=== PATIENT | female | born 1990 | race Caucasian/White ===

== ENCOUNTER 2017-01-01 02:31 | Emergency (ER) | payer OTHER ==
[2017-01-01 02:48] VITALS: BP 112/79
[2017-01-01] MEDS ORDERED: Ketorolac INJ* 60 MG/2 ML VIAL IM ONE (03:02)
--- NOTE | 2017-01-01 04:08 | ED ---
veronika Duong Timothy, scribed for Cali Chiu MD on 01/01/17 at 0303 . Headache - HPI Summary HPI Summary: Elvira Jacques is a 26 yo female presenting to [facility] with 7/10 ESPANA in the back of her head, weakness, and dizziness since 1800 12/31/16. Her boyfriend is present in room. She states she took a warm shower with no relief of her Sx. Her MHx includes hypotension, migraine, asthma, GERD, depression, anxiety, and tobacco use. - History Of Current Complaint Stated Complaint: HEADACHE/WEAK/DIZZY Time Seen by Provider: 01/01/17 03:00 Hx Obtained From: Patient Hx Last Menstrual Period: 12/13/15 Onset/Duration: Sudden Onset, Started hours ago, Worse Since - now Initially Headache Was: Initial Pain Scale(0-10)= - 7 Currently Pain Is: Current Pain Scale(0-10)= - 7, Moderate Timing: Constant Location of Headache: Occipital Allevating Factors: Nothing Associated Signs And Symptoms: Dizziness, Other (Noted In Comments) - weakness - Allergies/Home Medications Allergies/Adverse Reactions: Allergies Allergy/AdvReac Type Severity Reaction Status Date / Time Amoxicillin Allergy Severe Airway Verified 01/01/17 02:45 Obstruction Ciprofloxacin [From Cipro] Allergy Severe Anaphylatic Verified 01/01/17 02:45 Shock Codeine Allergy Severe Shortness Verified 01/01/17 02:45 of Breath Topiramate [From Topamax] Allergy Severe Shortness Verified 01/01/17 02:45 of Breath Latex Allergy Intermediate Rash Verified 01/01/17 02:45 Sulfa Antibiotics Allergy Mild GI Upset Verified 01/01/17 02:45 Trazodone Allergy Mild Anxiety Verified 01/01/17 02:45 Prednisone Allergy Unknown Verified 01/01/17 02:45 Reaction Details PMH/Surg Hx/FS Hx/Imm Hx Endocrine/Hematology History: Denies: Hx Diabetes, Hx Systemic Lupus Erythematosus Cardiovascular History: Reports: Hx Hypotension - low BPs per Pt Denies: Hx Congestive Heart Failure, Hx Hypertension Respiratory History: Reports: Hx Asthma - INHALER NEEDED, Hx Seasonal Allergies GI History: Reports: Hx Gastroesophageal Reflux Disease History: Denies: Hx Dialysis, Hx Renal Disease Musculoskeletal History: Denies: Hx Rheumatoid Arthritis Neurological History: Reports: Hx Migraine Psychiatric History: Reports: Hx Anxiety, Hx Depression - Cancer History Hx Chemotherapy: No - Surgical History Surgery Procedure, Year, and Place: right knee surgery 2007 (cyst removal); cholecystectomy 2014 Infectious Disease History: No Infectious Disease History: Denies: History Other Infectious Disease, Traveled Outside the [place] in Last 30 Days - Family History Family History: NON CONTRIBUTORY - Social History Alcohol Use: Occasionally Substance Use Type: Reports: None Hx Tobacco Use: Yes Smoking Status (MU): Light Every Day Tobacco Smoker Type: Cigarettes Amount Used/How Often: 3-4 / day since January 2015 Have You Smoked in the Last Year: Yes Review of Systems Constitutional: Negative Eyes: Negative ENT: Negative Cardiovascular: Negative Respiratory: Negative Gastrointestinal: Negative Genitourinary: Negative Musculoskeletal: Negative Skin: Negative Neurological: Other - dizziness Positive: Headache, Weakness Psychological: Normal All Other Systems Reviewed And Are Negative: Yes Physical Exam Triage Information Reviewed: Yes Vital Signs On Initial Exam: Initial Vitals Temp Pulse Resp BP Pulse Ox 98 F 82 18 112/79 98 01/01/17 02:43 01/01/17 02:43 01/01/17 02:43 01/01/17 02:43 01/01/17 02:43 Vital Signs Reviewed: Yes Appearance: Positive: Well-Appearing, No Pain Distress Skin: Positive: Warm Head/Face: Positive: Normal Head/Face Inspection Eyes: Positive: EOMI, PATRICIA ENT: Positive: Hearing grossly normal Neck: Positive: Supple Respiratory/Lung Sounds: Positive: Clear to Auscultation, Breath Sounds Present Cardiovascular: Positive: RRR Abdomen Description: Positive: Nontender, Soft Bowel Sounds: Positive: Present Musculoskeletal: Positive: Strength/ROM Intact Neurological: Positive: Sensory/Motor Intact, Alert, Oriented to Person Place, Time, CN Intact II-III, Normal Gait - Burt Coma Scale Coma Scale Total: 15 Diagnostics - Vital Signs Vital Signs Temp Pulse Resp BP Pulse Ox 01/01/17 02:43 98 F 82 18 112/79 98 - Laboratory Lab Statement: Any lab studies that have been ordered have been reviewed, and results considered in the medical decision making process. - CT Brain CT Interpretation: No Acute Changes - No acute brain parenchymal abnormality. No hemorrhage, mass, or acute territorial infarct. Clear visualizd paranasal sinuses. Visualized mastoid air cells clear. CT Interpretation Completed By: Radiologist - imaging manager acquisition Re-Evaluation - Re-Evaluation First Eval Re-Evaluation Time: 03:19 Change: Improved Comment: Adressed concerns of Pt's boyfriend for toxic shock syndrome. Headache Course/Dx - Course Assessment/Plan: Elvira Jacques is a 26 yo female presenting to [facility] with 7/10 ESPANA in the back of her head, weakness, and dizziness since 1800 12/31/16. She was given toradol in the ED for pain management. Her CT brain showed no acute disease. After clinical examination and review of her CT brain, she will be discharged home with ESPANA with appropriate instructions. - Diagnoses Provider Diagnoses: Head ache Discharge - Discharge Plan Condition: Stable Disposition: HOME Patient Education Materials: Acute Headache (ED) Referrals: Mehran Rodriges MD [Primary Care Provider] - 2 Days Additional Instructions: Please follow up with your primary care physician regarding your visit to the emergency department today. Return to the emergency department with any new or recurring symptoms. The documentation as recorded by the veronika dahl Timothy accurately reflects the service I personally performed and the decisions made by me, Cali Chiu MD.
--- NOTE | 2017-01-01 07:47 | RAD ---
INDICATION: Posterior headache COMPARISON: None. TECHNIQUE: Contiguous axial sections of the brain were obtained from the skull base to the vertex without contrast. FINDINGS: The ventricles, cisterns and sulci are within normal limits. The garcía-white matter differentiation is adequately maintained and there is no sulcal effacement. No significant focal abnormality or mass effect is present. There is no evidence for intracranial hemorrhage. No significant focal osseous abnormality is present. The visualized portion of the paranasal sinuses and mastoid air cells appear clear. IMPRESSION: Normal CT of the brain.
== END 2017-01-01 04:51 | disposition home or self-care (01) ==
LOC: ED 02:31
DX: R51 Headache (principal); R42 Dizziness and giddiness; R53.1 Weakness; F17.210 Nicotine dependence, cigarettes, uncomplicated
CPT/HCPCS: 70450; 96372; 99282; J1885

== ENCOUNTER 2017-02-09 00:03 | Emergency (ER) | payer OTHER ==
[2017-02-09] MEDS ORDERED: traMADol TAB* 50 MG PO ONE (00:44)
[2017-02-09 01:11] VITALS: BP 122/78
--- NOTE | 2017-02-09 07:31 | RAD ---
INDICATION: Right knee pain. TECHNIQUE: 4 views of the right knee were obtained. FINDINGS: The bones are in normal alignment. No joint effusion or fracture is seen. Joint spaces appear maintained. IMPRESSION: NEGATIVE EXAM.
--- NOTE | 2017-02-20 10:44 | ED ---
Lower Extremity - HPI Summary HPI Summary: Patient presents with acute on chronic knee pain that began again without known injury or insult. She has managed her pain with naproxen with minimal relief. She admits to locking, catching and instability but no warmth, redness or swelling. She can bear weight with discomfort. No N/T. - History of Current Complaint Chief Complaint: EDExtremityLower Stated Complaint: RIGHT KNEE PAIN Time Seen by Provider: 02/09/17 00:26 Hx Obtained From: Patient Hx Last Menstrual Period: 12/13/15 Mechanism Of Injury: Unknown Onset of Pain: Days Onset/Duration: Still Present Severity Initially: Mild Severity Currently: Moderate Pain Intensity: 4 Timing: Constant Location: Is Discrete @ - right knee Character Of Pain: Sharp, Aching Associated Signs And Symptoms: Positive: Knee Pain Aggravating Factor(s): Standing, Movement Alleviating Factor(s): Nothing Able to Bear Weight: Yes - Allergies/Home Medications Allergies/Adverse Reactions: Allergies Allergy/AdvReac Type Severity Reaction Status Date / Time Amoxicillin Allergy Severe Airway Verified 01/01/17 02:45 Obstruction Ciprofloxacin [From Cipro] Allergy Severe Anaphylatic Verified 01/01/17 02:45 Shock Codeine Allergy Severe Shortness Verified 01/01/17 02:45 of Breath Topiramate [From Topamax] Allergy Severe Shortness Verified 01/01/17 02:45 of Breath Latex Allergy Intermediate Rash Verified 01/01/17 02:45 Sulfa Antibiotics Allergy Mild GI Upset Verified 01/01/17 02:45 Trazodone Allergy Mild Anxiety Verified 01/01/17 02:45 Prednisone Allergy Unknown Verified 01/01/17 02:45 Reaction Details PMH/Surg Hx/FS Hx/Imm Hx Endocrine/Hematology History: Denies: Hx Diabetes, Hx Systemic Lupus Erythematosus Cardiovascular History: Reports: Hx Hypotension - low BPs per Pt Denies: Hx Congestive Heart Failure, Hx Hypertension Respiratory History: Reports: Hx Asthma - INHALER NEEDED, Hx Seasonal Allergies GI History: Reports: Hx Gastroesophageal Reflux Disease History: Denies: Hx Dialysis, Hx Renal Disease Musculoskeletal History: Denies: Hx Rheumatoid Arthritis Neurological History: Reports: Hx Migraine Psychiatric History: Reports: Hx Anxiety, Hx Depression - Cancer History Hx Chemotherapy: No - Surgical History Surgery Procedure, Year, and Place: right knee surgery 2007 (cyst removal); cholecystectomy 2014 Infectious Disease History: No Infectious Disease History: Denies: History Other Infectious Disease, Traveled Outside the [place] in Last 30 Days - Family History Known Family History: Positive: None Family History: NON CONTRIBUTORY - Social History Occupation: Employed Part-time Lives: With Family Alcohol Use: Occasionally Substance Use Type: Reports: None Hx Tobacco Use: Yes Smoking Status (MU): Light Every Day Tobacco Smoker Type: Cigarettes Amount Used/How Often: 3-4 / day since January 2015 Have You Smoked in the Last Year: Yes Cessation Counseling: Patient Advised to Stop Review of Systems Positive: Arthralgia, Myalgia. Negative: Decreased ROM, Edema Negative: Bruising Negative: Weakness, Paresthesia, Numbness All Other Systems Reviewed And Are Negative: Yes Physical Exam Triage Information Reviewed: Yes Vital Signs On Initial Exam: Initial Vitals Temp Pulse Resp BP Pulse Ox 98.4 F 116 18 115/88 99 02/09/17 00:08 02/09/17 00:08 02/09/17 00:08 02/09/17 00:08 02/09/17 00:08 Vital Signs Reviewed: Yes Appearance: Positive: Well-Appearing, Well-Nourished, Pain Distress Skin: Positive: Warm, Skin Color Reflects Adequate Perfusion, Dry, Soft Head/Face: Positive: Normal Head/Face Inspection Eyes: Positive: EOMI, PATRICIA, Conjunctiva Clear ENT: Positive: Hearing grossly normal Respiratory/Lung Sounds: Positive: Breath Sounds Present Cardiovascular: Positive: RRR Musculoskeletal: Positive: Strength/ROM Intact, Pain @ - TTP medial joint line and patella Neurological: Positive: Sensory/Motor Intact, Alert, Oriented to Person Place, Time, NV Bundle Intact Distally, Normal Gait Psychiatric: Positive: Affect/Mood Appropriate AVPU Assessment: Alert Diagnostics - Vital Signs Vital Signs Temp Pulse Resp BP Pulse Ox 02/09/17 01:41 99.2 F 02/09/17 00:55 98 F 70 18 122/78 100 02/09/17 00:08 98.4 F 116 18 115/88 99 - Laboratory Lab Statement: Any lab studies that have been ordered have been reviewed, and results considered in the medical decision making process. - Radiology No standard instances Xray Interpretation: No Acute Changes Radiology Interpretation Completed By: Radiologist Lower Extremity Course/Dx - Diagnoses Differential Diagnosis/HQI/PQRI: Positive: Arthritis, Bursitis, Contusion, Fracture (Closed), Sprain, Strain Provider Diagnoses: Right knee pain Discharge - Discharge Plan Condition: Stable Disposition: HOME Prescriptions: traMADol TAB* [Ultram*] 50 mg PO Q6HR PRN #16 tab MDD 4 PRN Reason: Pain Patient Education Materials: Knee Pain (ED) Referrals: Kristine Tirado MD [Medical Doctor] - Julián Horn MD [Primary Care Provider] - Additional Instructions: Please call Dr. Tirado's office in the morning for an appointment. Continue using Naproxen twice daily and add Tramadol for uncontrolled pain. Rest, ice and elevate the knee to decrease swelling and pain as well.
== END 2017-02-09 01:42 | disposition home or self-care (01) ==
LOC: ED 00:03
DX: M25.561 Pain in right knee (principal)
CPT/HCPCS: 99282; A9270-GY

== ENCOUNTER → 2017-06-25 14:14 | Emergency (ER) | payer OTHER ==
[~2017-06-25 14:14] MED LIST: Tetan/Diph/Pertus SYR(Tdap)* 0.5 ML SYR(BOOSTRIX) use SYR IM ONE
[2017-06-25 14:22] VITALS: BP 108/71
--- NOTE | 2017-06-25 15:04 | UC ---
Skin Complaint HPI - HPI Summary HPI Summary: Patient presents to the ED after stepping on a nail. The nail only portruded the skin of the right great toe superficially and she denies any pain. She is not concerned over FB, but tetanus is not UTD. Denies any health problems, skin infections or history of MRSA. She is otherwise feeling well. The area has a small punctate lesion measuring .2cm. No bleeding, drainage from the area. There is no surrounding erythema and patient has full ROM without numbness, tingling, color or temperature changes noted. - History of Current Complaint Chief Complaint: EDExtremityLower Time Seen by Provider: 06/25/17 14:33 Stated Complaint: NEEDS A TETANUS SHOT Hx Obtained From: Patient Hx Last Menstrual Period: 12/13/15 ?: No Onset/Duration: Sudden Onset Skin Exposure Onset/Duration: Hours Ago Timing: Constant Onset Severity: Mild Current Severity: Mild Pain Intensity: 3 Pain Scale Used: 0-10 Numeric Location: Discrete - right great toe Aggravating Factor(s): Nothing Alleviating Factor(s): Nothing Associated Signs & Symptoms: Positive: Negative Related History: Trauma - Allergy/Home Medications Allergies/Adverse Reactions: Allergies Allergy/AdvReac Type Severity Reaction Status Date / Time Amoxicillin Allergy Severe Airway Verified 01/01/17 02:45 Obstruction Ciprofloxacin [From Cipro] Allergy Severe Anaphylatic Verified 01/01/17 02:45 Shock Codeine Allergy Severe Shortness Verified 01/01/17 02:45 of Breath Topiramate [From Topamax] Allergy Severe Shortness Verified 01/01/17 02:45 of Breath Latex Allergy Intermediate Rash Verified 01/01/17 02:45 Sulfa Antibiotics Allergy Mild GI Upset Verified 01/01/17 02:45 Trazodone Allergy Mild Anxiety Verified 01/01/17 02:45 Prednisone Allergy Unknown Verified 01/01/17 02:45 Reaction Details Review of Systems Constitutional: Negative Skin: Other - see hpi Respiratory: Negative Cardiovascular: Negative Motor: Negative Neurovascular: Negative Musculoskeletal: Negative Neurological: Negative Psychological: Anxious - at baseline Is Patient Immunocompromised?: No All Other Systems Reviewed And Are Negative: Yes PMH/Surg Hx/FS Hx/Imm Hx Previously Healthy: Yes - Surgical History Surgical History: Yes Surgery Procedure, Year, and Place: right knee surgery 2007 (cyst removal); cholecystectomy 2014 - Family History Known Family History: Positive: None Family History: NON CONTRIBUTORY - Social History Alcohol Use: Occasionally Substance Use Type: None Smoking Status (MU): Light Every Day Tobacco Smoker Type: Cigarettes Amount Used/How Often: 3-4 / day since January 2015 Have You Smoked in the Last Year: Yes Household Exposure Type: Cigarettes - Immunization History Most Recent Influenza Vaccination: not in a long while Most Recent Tetanus Shot: unsure Most Recent Pneumonia Vaccination: none Physical Exam Triage Information Reviewed: Yes Appearance: Well-Appearing, Well-Nourished Vital Signs: Initial Vital Signs Temp 97.8 F 06/25/17 14:20 Pulse 89 06/25/17 14:20 Resp 18 06/25/17 14:20 BP 108/71 06/25/17 14:20 Pulse Ox 97 06/25/17 14:20 Vital Signs Reviewed: Yes Eye Exam: Normal Eyes: Positive: Conjunctiva Clear Neck exam: Normal Neck: Positive: Supple, No Lymphadenopathy Respiratory Exam: Normal Respiratory: Positive: Chest non-tender, Lungs clear Cardiovascular Exam: Normal Cardiovascular: Positive: RRR Musculoskeletal Exam: Normal Musculoskeletal: Positive: Strength Intact Neurological Exam: Normal Neurological: Positive: Alert Psychological: Positive: Normal Response To Family, Age Appropriate Behavior Skin Exam: Normal Course/Dx - Course Course Of Treatment: Patient presents to the ED after stepping on a nail. The nail only portruded the skin of the right great toe superficially and she denies any pain. She is not concerned over FB, but tetanus is not UTD. No concern for infection at this point, although infection precautions are given and explained. Tetanus booster given. She is OK with discharge. - Differential Diagnoses - Skin Complaint Differential Diagnoses: Other - tetanus update, puncture wound, infection, FB - Diagnoses Provider Diagnoses: Puncture wound to toe Discharge - Discharge Plan Condition: Stable Disposition: HOME
== END | disposition home or self-care (01) ==
LOC: ED 14:14
DX: S91.131A Puncture wound without foreign body of right great toe without damage to nail, initial encounter (principal); Z86.14 Personal history of Methicillin resistant Staphylococcus aureus infection; W45.0XXA Nail entering through skin, initial encounter; Y93.9 Activity, unspecified; Y92.9 Unspecified place or not applicable
CPT/HCPCS: 90471; 90715; 99282

== ENCOUNTER 2017-07-06 16:29 | Emergency (ER) | payer OTHER ==
[2017-07-06 16:41] VITALS: BP 103/73
--- NOTE | 2017-07-06 18:17 | UC ---
UC General HPI - HPI Summary HPI Summary: FIVE DAYS OF WORSENING LEFT EAR PAIN. NO FEVER. NO CONGESTION. NO SORE THROAT. NO SINUS PRESSURE. TWO DAYS OF PAIN AND SWELLING TO RIGHT LABIA, BEGAN PERIOD BEGAN. - History of Current Complaint Chief Complaint: UCGU Stated Complaint: PERSONAL, AND EARS CLOGGED Time Seen by Provider: 07/06/17 17:18 Hx Obtained From: Patient Hx Last Menstrual Period: currently menstruating Onset/Duration: Gradual Onset, Lasting Days Onset Severity: Mild Current Severity: Moderate Pain Intensity: 1 Associated Signs & Symptoms: Positive: Other - LEFT EAR ACHE. Negative: Abdominal Pain, Back Pain, Cough, Dizziness, Diarrhea, Dysuria, Edema, Fever, Headache, Immunocompromised, Nausea, Palpitations, Recent Medication Changes, Syncope, SOB, Trauma - Allergy/Home Medications Allergies/Adverse Reactions: Allergies Allergy/AdvReac Type Severity Reaction Status Date / Time Amoxicillin Allergy Severe Airway Verified 01/01/17 02:45 Obstruction Ciprofloxacin [From Cipro] Allergy Severe Anaphylatic Verified 01/01/17 02:45 Shock Codeine Allergy Severe Shortness Verified 01/01/17 02:45 of Breath Topiramate [From Topamax] Allergy Severe Shortness Verified 01/01/17 02:45 of Breath Latex Allergy Intermediate Rash Verified 01/01/17 02:45 Sulfa Antibiotics Allergy Mild GI Upset Verified 01/01/17 02:45 Trazodone Allergy Mild Anxiety Verified 01/01/17 02:45 Prednisone Allergy Unknown Verified 01/01/17 02:45 Reaction Details PMH/Surg Hx/FS Hx/Imm Hx Previously Healthy: Yes - Surgical History Surgical History: Yes Surgery Procedure, Year, and Place: right knee surgery 2007 (cyst removal); cholecystectomy 2014. Appendectomy 2016 - Family History Known Family History: Positive: None Negative: Diabetes Family History: NON CONTRIBUTORY - Social History Occupation: Works From/At Home Lives: With Family Alcohol Use: Occasionally Substance Use Type: None Smoking Status (MU): Light Every Day Tobacco Smoker Type: Cigarettes Amount Used/How Often: 3-4 / day since January 2015 Have You Smoked in the Last Year: Yes Household Exposure Type: Cigarettes Cessation Counseling: Patient Advised to Stop - Immunization History Most Recent Influenza Vaccination: not in a long while Most Recent Tetanus Shot: 06/25/17 Most Recent Pneumonia Vaccination: none Review of Systems Constitutional: Negative Skin: Other - LESION RIGHT SUPERIOR LABIA MINORA ENT: Ear Ache Respiratory: Negative Cardiovascular: Negative Gastrointestinal: Negative Genitourinary: Vaginal/Penile Pain - RIGHT SUPERIOR LABIA MINORA, Ulceration/ Lesion - RIGHT SUPERIOR LABIA MINORA Motor: Negative Neurovascular: Negative Musculoskeletal: Negative Neurological: Negative Psychological: Negative Is Patient Immunocompromised?: No All Other Systems Reviewed And Are Negative: Yes Physical Exam Triage Information Reviewed: Yes Appearance: Well-Appearing, No Pain Distress, Well-Nourished Vital Signs: Initial Vital Signs Temp 98.6 F 07/06/17 16:38 Pulse 92 07/06/17 16:38 Resp 16 07/06/17 16:38 BP 103/73 07/06/17 16:38 Pulse Ox 100 07/06/17 16:38 Vital Signs Reviewed: Yes Eye Exam: Normal ENT: Positive: Hearing grossly normal, TM bulging, TM dull, TM red - LEFT TM Dental Exam: Normal Neck exam: Normal Neck: Positive: Supple, Nontender, No Lymphadenopathy Respiratory Exam: Normal Respiratory: Positive: Chest non-tender, Lungs clear, Normal breath sounds, No respiratory distress Cardiovascular Exam: Normal Cardiovascular: Positive: RRR, No Murmur, Pulses Normal Abdominal Exam: Normal Abdomen Description: Positive: Nontender, No Organomegaly, Soft, Other: - 0.5 CM X 0.5 CM INDURATED ABSCESS, RIGHT SUPERIOR LABIA MINORA Musculoskeletal Exam: Normal Musculoskeletal: Positive: Strength Intact, ROM Intact Neurological Exam: Normal Psychological Exam: Normal Skin: Positive: Other - RIGHT SUPERIOR LABIA MINORA 0.5 CM X 0.5 CM INDURATED LESION Course/Dx - Differential Dx - Multi-Symptom Provider Diagnoses: LEFT OTITIS MEDIA; INDURATED ABSCESS RIGHT SUPERIOR LABIA MINORA Discharge - Discharge Plan Condition: Stable Disposition: HOME Prescriptions: Azithromycin TAB* [Zithromax TAB (Z-CASIMIRO) 250 mg #6 tabs] 250 mg PO DAILY #6 tab Patient Education Materials: Otitis Media (ED), Abscess (ED) Referrals: Julián Horn MD [Primary Care Provider] - Images Perineum Female: 1 - 0.5 CM X 0.5 CM INDURATED LESION RIGHT SUPERIOR LABIA MINORA
== END 2017-07-06 17:45 | disposition home or self-care (01) ==
LOC: UCEAST 16:29
DX: H66.92 Otitis media, unspecified, left ear (principal); N76.4 Abscess of vulva; Z90.49 Acquired absence of other specified parts of digestive tract; Z88.5 Allergy status to narcotic agent; Z88.2 Allergy status to sulfonamides; Z88.8 Allergy status to other drugs, medicaments and biological substances; Z88.1 Allergy status to other antibiotic agents; Z91.040 Latex allergy status; F17.210 Nicotine dependence, cigarettes, uncomplicated
CPT/HCPCS: 87070; 87205; 87640; 87641; 99212; G0463

== ENCOUNTER 2017-09-28 05:29 | Emergency (ER) | payer SELFPAY ==
[2017-09-28] MEDS ORDERED: Ibuprofen TAB* 800 MG PO ONE (06:02)
--- NOTE | 2017-09-28 08:51 | RAD ---
Indication: Fall Single view of the pelvis demonstrates pelvic ring to be intact. No fracture is noted. No other bone or joint abnormality is noted. IMPRESSION: No fracture of the pelvis is noted.
--- NOTE | 2017-09-28 09:22 | ED ---
Madan Duong Angela, scribed for Jenifer Carey MD on 09/28/17 at 0743 . Progress - Progress Note Progress Note: This pt was signed out by Dr. Mckeon, pending disposition, awaiting pelvis XR. Pt is a 27 y/o female presenting to [facility] c/o left hip pain since 0430 s/p fall this morning. Patient reports she fell outside at her job. Patient is ambulatory. Pt will be discharged to home in stable condition. - Results/Orders Results/Orders: Pelvis XR, as read by ED physician: on obvious fracture. as read by radiologist: IMPRESSION: No fracture of the pelvis is noted. Dr. Carey has reviewed this radiology report. Re-Evaluation - Re-Evaluation First Eval Re-Evaluation Time: 08:52 Change: Improved Comment: I reviewed the lab and XR results with the pt. Pt is ambulating. Course/Dx - Course Course Of Treatment: Pelvic XR is negative. Pt is not . Pt will be discharged to home in stable condition. She will be given a work note. - Diagnoses Provider Diagnoses: Hip pain, Fall The documentation as recorded by the Madan dahl Angela accurately reflects the service I personally performed and the decisions made by me, Jenifer Carey MD.
[2017-09-28 09:36] VITALS: BP 104/85
--- NOTE | 2017-09-30 06:05 | ED ---
Mar Duong Gabriel, scribed for Doe Mckeon MD on 09/28/17 at 0605 . Lower Extremity - HPI Summary HPI Summary: This patient is a 27 year old F BIBA to [facility] with a chief complaint of left hip pain since 429. The patient rates the pain 3/10 in severity. Patient fell outside at her job, patient is ambulatory. - History of Current Complaint Chief Complaint: EDExtremityLower Stated Complaint: LEFT HIP PAIN, FALL AT WORK Time Seen by Provider: 09/28/17 05:56 Hx Obtained From: Patient Hx Last Menstrual Period: currently menstruating Mechanism Of Injury: Fall From A Standing Position Onset of Pain: Immediate Onset/Duration: Still Present Severity Initially: Mild Severity Currently: Mild Pain Intensity: 3 Pain Scale Used: 0-10 Numeric Timing: Constant Associated Signs And Symptoms: Positive: Other - left hip pain Able to Bear Weight: Yes Related History: Occupational Injury - Allergies/Home Medications Allergies/Adverse Reactions: Allergies Allergy/AdvReac Type Severity Reaction Status Date / Time Amoxicillin Allergy Severe Airway Verified 09/29/17 16:17 Obstruction Ciprofloxacin [From Cipro] Allergy Severe Anaphylatic Verified 09/29/17 16:17 Shock Codeine Allergy Severe Shortness Verified 09/29/17 16:17 of Breath Topiramate [From Topamax] Allergy Severe Shortness Verified 09/29/17 16:17 of Breath Latex Allergy Intermediate Rash Verified 09/29/17 16:17 Sulfa Antibiotics Allergy Mild GI Upset Verified 09/29/17 16:17 Trazodone Allergy Mild Anxiety Verified 09/29/17 16:17 Prednisone Allergy Unknown Verified 09/29/17 16:17 Reaction Details PMH/Surg Hx/FS Hx/Imm Hx Endocrine/Hematology History: Denies: Hx Diabetes, Hx Systemic Lupus Erythematosus, Hx Thyroid Disease Cardiovascular History: Reports: Hx Hypotension - low BPs per Pt Denies: Hx Congestive Heart Failure, Hx Hypertension Respiratory History: Reports: Hx Asthma - INHALER NEEDED, Hx Seasonal Allergies Denies: Hx Chronic Obstructive Pulmonary Disease (COPD) GI History: Reports: Hx Gastroesophageal Reflux Disease Denies: Hx Ulcer History: Denies: Hx Dialysis, Hx Renal Disease Musculoskeletal History: Denies: Hx Rheumatoid Arthritis Neurological History: Reports: Hx Migraine Psychiatric History: Reports: Hx Anxiety, Hx Depression - Cancer History Hx Chemotherapy: No - Surgical History Surgery Procedure, Year, and Place: right knee surgery 2007 (cyst removal); cholecystectomy 2014. Appendectomy 2017 - Immunization History Date of Tetanus Vaccine: 06/25/17 Infectious Disease History: No Infectious Disease History: Denies: Hx Hepatitis, Hx Human Immunodeficiency Virus (HIV), History Other Infectious Disease, Traveled Outside the [place] in Last 30 Days - Family History Known Family History: Positive: None Negative: Diabetes Family History: NON CONTRIBUTORY - Social History Alcohol Use: Occasionally Substance Use Type: Reports: None Hx Tobacco Use: Yes Smoking Status (MU): Light Every Day Tobacco Smoker Type: Cigarettes Amount Used/How Often: 3-4 / day since January 2015 Have You Smoked in the Last Year: Yes Review of Systems Positive: Other - pain at left hip Negative: Slurred Speech All Other Systems Reviewed And Are Negative: Yes Physical Exam - Summary Physical Exam Summary: VITAL SIGNS: Reviewed. GENERAL: Patient is a well-developed and nourished female who is lying comfortable in the stretcher. Patient is not in any acute respiratory distress. HEAD AND FACE: No signs of trauma. No ecchymosis, hematomas or skull depressions. No sinus tenderness. EYES: PERRLA, EOMI x 2, No injected conjunctiva, no nystagmus. EARS: Hearing grossly intact. Ear canals and tympanic membranes are within normal limits. MOUTH: Oropharynx within normal limits. NECK: Supple, trachea is midline, no adenopathy, no JVD, no carotid bruit, no c- spine tenderness, neck with full ROM. CHEST: Symmetric, no tenderness at palpation LUNGS: Clear to auscultation bilaterally. No wheezing or crackles. CVS: Regular rate and rhythm, S1 and S2 present, no murmurs or gallops appreciated. ABDOMEN: Soft, non-tender. No signs of distention. No rebound no guarding, and no masses palpated. Bowel sounds are normal. EXTREMITIES: FROM in all major joints, no edema, no cyanosis or clubbing. Tenderness over the left buttock NEURO: Alert and oriented x 3. No acute neurological deficits. Speech is normal and follows commands. SKIN: Dry and warm Triage Information Reviewed: Yes Vital Signs On Initial Exam: Initial Vitals Temp Pulse Resp BP Pulse Ox 99.0 F 87 16 131/77 100 09/28/17 05:34 09/28/17 05:34 09/28/17 05:34 09/28/17 05:34 09/28/17 05:34 Vital Signs Reviewed: Yes Diagnostics - Vital Signs Vital Signs Temp Pulse Resp BP Pulse Ox 09/28/17 05:34 99.0 F 87 16 131/77 100 - Laboratory Lab Results: Lab Results 09/28/17 Range/Units 06:40 Beta HCG, Quant < 0.60 mIU/mL Lab Statement: Any lab studies that have been ordered have been reviewed, and results considered in the medical decision making process. Re-Evaluation - Re-Evaluation First Eval Re-Evaluation Time: 08:52 Change: Improved Comment: I reviewed the lab and XR results with the pt. Pt is ambulating. Lower Extremity Course/Dx - Diagnoses Provider Diagnoses: Hip pain, Fall Discharge - Discharge Plan Condition: Stable Disposition: HOME Discharge Disposition Comment: Patient is signed out to Dr. Carey, pending disposition, awaiting xray Patient Education Materials: Fall Prevention (ED), Hip Pain (ED) Forms: *Work Release Referrals: Julián Horn MD [Primary Care Provider] - Additional Instructions: Take motrin 600mg and tylenol 650mg every 6 hours for pain. return if worse or any new symptoms. Please follow up with your primary care physician in 1-2 days. The documentation as recorded by the Mar dahl Gabriel accurately reflects the service I personally performed and the decisions made by , Doe Mckeon MD.
== END 2017-09-28 09:35 | disposition home or self-care (01) ==
LOC: ED 05:29
DX: M25.552 Pain in left hip (principal); F17.210 Nicotine dependence, cigarettes, uncomplicated; Z91.81 History of falling
CPT/HCPCS: 36415; 72170; 84702; 99281; A9270-GY

== ENCOUNTER 2017-09-29 15:44 | Emergency (ER) | payer OTHER ==
[2017-09-29 16:17] VITALS: BP 105/64
--- NOTE | 2017-09-29 17:16 | UC ---
Hip/Pelvis Pain - HPI Summary HPI Summary: 27 y/o female presents s/p fall yesterday morning. She was seen in the ER yesterday for this same issue, but only had hip pain at that time. She slipped and landed on her left side. Did not hit her head. Today she is complaining of left lower back and lower rib pain. She is very anxious about this. She has been taking ibuprofen and using a heating pad with mild relief of her pain. Denies fever, chills, cough, SOB, pain when breathing, chest pain, abdominal pain, N/V/D/C, dysuria, or hematuria. - History Of Current Complaint Chief Complaint: UCTrauma Stated Complaint: FLANK PAIN,RECHECK INJURIES FRM FALL WC Time Seen by Provider: 09/29/17 17:13 Hx Obtained From: Patient Hx Last Menstrual Period: 09/29/2017 Onset/Duration: Sudden Onset Timing: Constant Severity Initially: Moderate Severity Currently: Moderate Pain Intensity: 4 Pain Scale Used: 0-10 Numeric Character Of Pain: Dull, Aching, Spasmodic, Stiffness Aggravating Factor(s): Movement Alleviating Factor(s): Rest, Position - Allergies/Home Medications Allergies/Adverse Reactions: Allergies Allergy/AdvReac Type Severity Reaction Status Date / Time Amoxicillin Allergy Severe Airway Verified 09/29/17 16:17 Obstruction Ciprofloxacin [From Cipro] Allergy Severe Anaphylatic Verified 09/29/17 16:17 Shock Codeine Allergy Severe Shortness Verified 09/29/17 16:17 of Breath Topiramate [From Topamax] Allergy Severe Shortness Verified 09/29/17 16:17 of Breath Latex Allergy Intermediate Rash Verified 09/29/17 16:17 Sulfa Antibiotics Allergy Mild GI Upset Verified 09/29/17 16:17 Trazodone Allergy Mild Anxiety Verified 09/29/17 16:17 Prednisone Allergy Unknown Verified 09/29/17 16:17 Reaction Details Home Medications: Home Medications Buspar TAB * 30 mg PO DAILY 09/29/17 [History Confirmed 09/29/17] PMH/Surg Hx/FS Hx/Imm Hx GI/ History: Gastroesophageal Reflux Psychological History: Anxiety, Depression - Surgical History Surgical History: Yes Surgery Procedure, Year, and Place: right knee surgery 2007 (cyst removal); cholecystectomy 2014. Appendectomy 2016 - Family History Known Family History: Positive: None Negative: Diabetes Family History: NON CONTRIBUTORY - Social History Occupation: Employed Full-time Alcohol Use: Occasionally Substance Use Type: None Smoking Status (MU): Light Every Day Tobacco Smoker Type: Cigarettes Amount Used/How Often: 3-4 / day since January 2015 Have You Smoked in the Last Year: Yes Household Exposure Type: Cigarettes Cessation Counseling: Counseled 3+Min - 10 Min - Immunization History Most Recent Influenza Vaccination: not in a long while Most Recent Tetanus Shot: 06/25/17 Most Recent Pneumonia Vaccination: none Review of Systems Constitutional: Negative Skin: Negative Respiratory: Negative Cardiovascular: Negative Gastrointestinal: Negative Genitourinary: Negative Musculoskeletal: Other: - TTP over left 10th rib Neurological: Negative Psychological: Negative All Other Systems Reviewed And Are Negative: Yes Physical Exam Triage Information Reviewed: Yes Appearance: Well-Appearing, No Pain Distress, Well-Nourished, Other: - She is appears anxious. Grasping her hands, glancing around the room while speaking, soft spoken. Vital Signs: Initial Vital Signs Temp 98.7 F 09/29/17 16:05 Pulse 92 09/29/17 16:05 Resp 16 09/29/17 16:05 BP 105/64 09/29/17 16:05 Pulse Ox 100 09/29/17 16:05 Vital Signs Reviewed: Yes Neck: Positive: Supple, Other: - FROM. NTTP. Respiratory: Positive: Chest non-tender, Lungs clear, Normal breath sounds, No respiratory distress, No accessory muscle use Cardiovascular: Positive: RRR, No Murmur, Pulses Normal Abdomen Description: Positive: Nontender, No Organomegaly, Soft. Negative: CVA Tenderness (R), CVA Tenderness (L), Distended, Guarding Bowel Sounds: Positive: Present Musculoskeletal: Positive: Strength Intact - B/L UEs and LEs, ROM Intact - B/L UEs and LEs, No Edema, Other: - TTP over left 10th rib and paraspinal muscles. No obvious bony deformity. Neurological: Positive: Alert, Other: - B/L UEs and LEs sensations intact. Psychological: Positive: Age Appropriate Behavior Skin: Positive: Other - No erythema, ecchymosis, or abrasions. Hip Injury Course/Dx - Course Course Of Treatment: Left rib XR: IMPRESSION: No evidence for LEFT rib fracture. Negative exam. I suspect this is a rib contusion vs muscle spasm of her paraspinal muscles. I reassured her that this pain will take time to heal and offered her potential treatment options 1) Toradol IM today 2) Meloxicam po 3) Flexeril at bedtime. After a long discussion, she chose to try the flexeril at bedtime for her pain. I advised her to continue taking ibuprofen during the day, ice/heat to the area, and activities as tolerated. She is asking to return to work this sunday 10/01. - Differential Dx/Diagnosis Differential Diagnosis/HQI/PQRI: Contusion, Fracture, Sprain, Strain Provider Diagnoses: Left rib contusion. Muscle spasm lower back Discharge - Discharge Plan Condition: Stable Disposition: HOME Prescriptions: Cyclobenzaprine HCl [Flexeril 5 mg (NF)] 5 mg PO BEDTIME PRN #10 tab PRN Reason: Pain Patient Education Materials: Rib Contusion (ED) Forms: *Gen. Provider Communication Referrals: Julián Horn MD [Primary Care Provider] - Additional Instructions: If you develop a fever, shortness of breath, chest pain, new or worsening symptoms - please call your PCP or go to the ED. 1) Rest and apply heat to the area. May take ibuprofen 600mg every 6 hours as needed for pain
--- NOTE | 2017-09-29 18:00 | RAD ---
Indication: LEFT anterolateral mid rib pain post 2 days ago. Comparison: March 02, 2017 Technique: Dual energy PA chest and three-view dedicated LEFT rib series. Report: Negative for LEFT rib fracture, pleural effusion, pneumothorax, or urinary contusion. Clear lungs. LEFT unilateral C7 cervical rib. The heart, pulmonary vasculature, and mediastinal contours are unremarkable. Gallbladder fossa level surgical clips. IMPRESSION: No evidence for LEFT rib fracture. Negative exam.
== END 2017-09-29 18:34 | disposition home or self-care (01) ==
LOC: UCEAST 15:44
DX: S20.222D Contusion of left back wall of thorax, subsequent encounter (principal); M62.830 Muscle spasm of back; W19.XXXD Unspecified fall, subsequent encounter; Y92.9 Unspecified place or not applicable; Z72.0 Tobacco use; Z72.89 Other problems related to lifestyle
CPT/HCPCS: 99212; G0463

== ENCOUNTER 2017-09-30 07:08 | Emergency (ER) | payer OTHER ==
[2017-09-30 10:16] LABS: ABS Basophils 0.1 10^3/ul (0-0.2); ABS Eosinophils 0.1 10^3/ul (0-0.6); ABS Lymphocytes 2.8 10^3/ul (1.0-4.8); ABS Monocytes 0.8 10^3/ul (0-0.8); ABS Neutrophils 5.9 10^3/ul (1.5-7.7); ABS Nucleated RBC 0 10^3/ul; Eosinophil % 1.3 % (0-6); Hematocrit 37 % (35-47); Hemoglobin 12.4 g/dl (12.0-16.0); Lymphocyte % 29.1 % (25-47); Mean Corpuscular HGB Conc 34 g/dl (31-36); Mean Corpuscular Hemoglobin 30 pg (27-31); Mean Corpuscular Volume 89 fL (80-97); Mean Platelet Volume 8 um3 (7.4-10.4); Nucleated Red Blood Cells % 0; Platelet Count 338 10^3/ul (150-450); Red Blood Count 4.15 10^6/ul (4.0-5.4); Red Cell Distribution Width 14 % (10.5-15); White Blood Count 9.7 10^3/ul (3.5-10.8)
[2017-09-30 10:39] LABS: EGFR Non-African American 112.5 (>60)
[2017-09-30 10:48] LABS: Urine Appearance Clear; Urine Blood 3+ (Negative); Urine Color Yellow; Urine Ketones Negative (Negative); Urine Protein Negative (Negative); Urine Specific Gravity 1.008 (1.010-1.030); Urine Urobilinogen Negative (Negative)
[2017-09-30 11:45] VITALS: BP 109/70
--- NOTE | 2017-09-30 12:32 | ED ---
Ab Duong Stephanie, scribed for Clint Lutz MD on 09/30/17 at 0743 . Substance Abuse/Use - HPI Summary HPI Summary: The pt is a 34 y/o F presenting to the ED for an accidental overdose that occurred today at 06:00. At 02:00 she took her regular dose busparone 15 mg and venlafaxine 225mg and at 06:00, she accidentally took another dose of her at 06: 00. - History Of Current Complaint Chief Complaint: EDOverdose Stated Complaint: POSSIBLE OVERDOSE Time Seen by Provider: 09/30/17 07:21 Hx Obtained From: Patient Hx Last Menstrual Period: 09/29/2017 Onset/Duration of Drug/ETOH Abuse: Hours Overdose Characteristics: Oral Aggravating Factor(s): Nothing Alleviating Factor(s): Nothing - Allergies/Home Medications Allergies/Adverse Reactions: Allergies Allergy/AdvReac Type Severity Reaction Status Date / Time Amoxicillin Allergy Severe Airway Verified 09/29/17 16:17 Obstruction Ciprofloxacin [From Cipro] Allergy Severe Anaphylatic Verified 09/29/17 16:17 Shock Codeine Allergy Severe Shortness Verified 09/29/17 16:17 of Breath Topiramate [From Topamax] Allergy Severe Shortness Verified 09/29/17 16:17 of Breath Latex Allergy Intermediate Rash Verified 09/29/17 16:17 Sulfa Antibiotics Allergy Mild GI Upset Verified 09/29/17 16:17 Trazodone Allergy Mild Anxiety Verified 09/29/17 16:17 Prednisone Allergy Unknown Verified 09/29/17 16:17 Reaction Details PMH/Surg Hx/FS Hx/Imm Hx Endocrine/Hematology History: Denies: Hx Diabetes, Hx Systemic Lupus Erythematosus, Hx Thyroid Disease Cardiovascular History: Reports: Hx Hypotension - low BPs per Pt Denies: Hx Congestive Heart Failure, Hx Hypertension Respiratory History: Reports: Hx Asthma - INHALER NEEDED, Hx Seasonal Allergies Denies: Hx Chronic Obstructive Pulmonary Disease (COPD) GI History: Reports: Hx Gastroesophageal Reflux Disease Denies: Hx Ulcer History: Denies: Hx Dialysis, Hx Renal Disease Musculoskeletal History: Denies: Hx Rheumatoid Arthritis Neurological History: Reports: Hx Migraine Psychiatric History: Reports: Hx Anxiety, Hx Depression - Cancer History Hx Chemotherapy: No - Surgical History Surgery Procedure, Year, and Place: right knee surgery 2007 (cyst removal); cholecystectomy 2014. Appendectomy 2016 - Immunization History Date of Tetanus Vaccine: 06/25/17 Infectious Disease History: No Infectious Disease History: Denies: Hx Hepatitis, Hx Human Immunodeficiency Virus (HIV), History Other Infectious Disease, Traveled Outside the [place] in Last 30 Days - Family History Known Family History: Negative: Cardiac Disease, Diabetes Family History: NON CONTRIBUTORY - Social History Occupation: Employed Part-time Alcohol Use: Occasionally Substance Use Type: Reports: None Hx Tobacco Use: Yes Smoking Status (MU): Light Every Day Tobacco Smoker Type: Cigarettes Amount Used/How Often: 3-4 / day since January 2015 Have You Smoked in the Last Year: Yes Review of Systems Negative: Fever Negative: Cough All Other Systems Reviewed And Are Negative: Yes Physical Exam - Summary Physical Exam Summary: Appearance: The patient is well-nourished in no acute distress and in no acute pain. Skin: The skin is warm and dry and skin color reflects adequate perfusion. HEENT: The head is normocephalic and atraumatic. The pupils are equal and reactive. The conjunctivae are clear and without drainage. Nares are patent and without drainage. Mouth reveals moist mucous membranes and the throat is without erythema and exudate. The external ears are intact. The ear canals are patent and without drainage. The tympanic membranes are intact. Neck: the neck is supple with full range of motion and non-tender. There are no carotid bruits. There is no neck vein distension. Respiratory: Chest is non-tender. Lungs are clear to auscultation and breath sounds are symmetrical and equal. Cardiovascular: Heart is regular rate and rhythm. There is no murmur or rub auscultated. There is no peripheral edema and pulses are symmetrical and equal. Abdomen: The abdomen is soft and non-tender. There are normal bowel sounds heard in all four quadrants and there is no organomegaly palpated. Musculoskeletal: There is no back tenderness noted. Extremities are non-tender with full range of motion. There is good capillary refill. There is no peripheral edema or calf tenderness elicited. Neurological: Patient is alert and oriented to person, place and time. The patient has symmetrical motor strength in all four extremities. Cranial nerves are grossly intact. Deep tendon reflexes are symmetrical and equal in all four extremities. Psychiatric: The patient has an appropriate affect and does not exhibit any anxiety or depression. Triage Information Reviewed: Yes Vital Signs On Initial Exam: Initial Vitals Temp Pulse Resp BP Pulse Ox 99.1 F 99 18 121/79 100 09/30/17 07:09 09/30/17 07:09 09/30/17 07:09 09/30/17 07:09 09/30/17 07:09 Vital Signs Reviewed: Yes - [place] Coma Scale Coma Scale Total: 15 Diagnostics - Vital Signs Vital Signs Temp Pulse Resp BP Pulse Ox 09/30/17 07:34 22 09/30/17 07:29 80 25 99 09/30/17 07:27 126/76 09/30/17 07:09 99.1 F 99 18 121/79 100 - Laboratory Lab Results: Lab Results 09/30/17 09/30/17 09/30/17 Range/Units 10:00 10:00 10:00 WBC 9.7 (3.5-10.8) 10^3/ul RBC 4.15 (4.0-5.4) 10^6/ul Hgb 12.4 (12.0-16.0) g/dl Hct 37 (35-47) % MCV 89 (80-97) fL MCH 30 (27-31) pg MCHC 34 (31-36) g/dl RDW 14 (10.5-15) % Plt Count 338 (150-450) 10^3/ul MPV 8 (7.4-10.4) um3 Neut % (Auto) 60.8 (38-83) % Lymph % (Auto) 29.1 (25-47) % Benson % (Auto) 8.2 (1-9) % Eos % (Auto) 1.3 (0-6) % Baso % (Auto) 0.6 (0-2) % Absolute Neuts (auto) 5.9 (1.5-7.7) 10^3/ul Absolute Lymphs (auto) 2.8 (1.0-4.8) 10^3/ul Absolute Monos (auto) 0.8 (0-0.8) 10^3/ul Absolute Eos (auto) 0.1 (0-0.6) 10^3/ul Absolute Basos (auto) 0.1 (0-0.2) 10^3/ul Absolute Nucleated RBC 0 10^3/ul Nucleated RBC % 0 Sodium 139 (133-145) mmol/L Potassium 3.6 (3.5-5.0) mmol/L Chloride 107 (101-111) mmol/L Carbon Dioxide 25 (22-32) mmol/L Anion Gap 7 (2-11) mmol/L BUN 9 (6-24) mg/dL Creatinine 0.63 (0.51-0.95) mg/dL Est GFR ( Amer) 144.7 (>60) Est GFR (Non-Af Amer) 112.5 (>60) BUN/Creatinine Ratio 14.3 (8-20) Glucose 116 H (70-100) mg/dL Lactic Acid 1.1 (0.5-2.0) mmol/L Calcium 9.0 (8.6-10.3) mg/dL Total Bilirubin 0.30 (0.2-1.0) mg/dL AST 17 (13-39) U/L ALT 15 (7-52) U/L Alkaline Phosphatase 57 (34-104) U/L Total Protein 6.3 L (6.4-8.9) g/dL Albumin 3.9 (3.2-5.2) g/dL Globulin 2.4 (2-4) g/dL Albumin/Globulin Ratio 1.6 (1-3) TSH 0.59 (0.34-5.60) mcIU/mL Beta HCG, Quant < 0.60 mIU/mL Urine Color Urine Appearance Urine pH (5-9) Ur Specific [place] (1.010-1.030) Urine Protein (Negative) Urine Ketones (Negative) Urine Blood (Negative) Urine Nitrate (Negative) Urine Bilirubin (Negative) Urine Urobilinogen (Negative) Ur Leukocyte Esterase (Negative) Urine WBC (Auto) (Absent) Urine RBC (Auto) (Absent) Ur Squamous Epith Cells (Absent) Urine Bacteria (Absent) Urine Glucose (Negative) Salicylates < 2.50 (<30) mg/dL Urine Opiates Screen (None Detect) Acetaminophen < 15 mcg/mL Ur Barbiturates Screen (None Detect) Ur Phencyclidine Scrn (None Detect) Ur Amphetamines Screen (None Detect) U Benzodiazepines Scrn (None Detect) Urine Cocaine Screen (None Detect) U Cannabinoids Screen (None Detect) Serum Alcohol < 10 (<10) mg/dL 09/30/17 09/30/17 Range/Units 10:20 10:20 WBC (3.5-10.8) 10^3/ul RBC (4.0-5.4) 10^6/ul Hgb (12.0-16.0) g/dl Hct (35-47) % MCV (80-97) fL MCH (27-31) pg MCHC (31-36) g/dl RDW (10.5-15) % Plt Count (150-450) 10^3/ul MPV (7.4-10.4) um3 Neut % (Auto) (38-83) % Lymph % (Auto) (25-47) % Benson % (Auto) (1-9) % Eos % (Auto) (0-6) % Baso % (Auto) (0-2) % Absolute Neuts (auto) (1.5-7.7) 10^3/ul Absolute Lymphs (auto) (1.0-4.8) 10^3/ul Absolute Monos (auto) (0-0.8) 10^3/ul Absolute Eos (auto) (0-0.6) 10^3/ul Absolute Basos (auto) (0-0.2) 10^3/ul Absolute Nucleated RBC 10^3/ul Nucleated RBC % Sodium (133-145) mmol/L Potassium (3.5-5.0) mmol/L Chloride (101-111) mmol/L Carbon Dioxide (22-32) mmol/L Anion Gap (2-11) mmol/L BUN (6-24) mg/dL Creatinine (0.51-0.95) mg/dL Est GFR ( Amer) (>60) Est GFR (Non-Af Amer) (>60) BUN/Creatinine Ratio (8-20) Glucose (70-100) mg/dL Lactic Acid (0.5-2.0) mmol/L Calcium (8.6-10.3) mg/dL Total Bilirubin (0.2-1.0) mg/dL AST (13-39) U/L ALT (7-52) U/L Alkaline Phosphatase (34-104) U/L Total Protein (6.4-8.9) g/dL Albumin (3.2-5.2) g/dL Globulin (2-4) g/dL Albumin/Globulin Ratio (1-3) TSH (0.34-5.60) mcIU/mL Beta HCG, Quant mIU/mL Urine Color Yellow Urine Appearance Clear Urine pH 7.0 (5-9) Ur Specific [place] 1.008 L (1.010-1.030) Urine Protein Negative (Negative) Urine Ketones Negative (Negative) Urine Blood 3+ H (Negative) Urine Nitrate Negative (Negative) Urine Bilirubin Negative (Negative) Urine Urobilinogen Negative (Negative) Ur Leukocyte Esterase Trace H (Negative) Urine WBC (Auto) 3+(>20/hpf) H (Absent) Urine RBC (Auto) 3+(>10/hpf) H (Absent) Ur Squamous Epith Cells Present H (Absent) Urine Bacteria Absent (Absent) Urine Glucose Negative (Negative) Salicylates (<30) mg/dL Urine Opiates Screen None detected (None Detect) Acetaminophen mcg/mL Ur Barbiturates Screen None detected (None Detect) Ur Phencyclidine Scrn None detected (None Detect) Ur Amphetamines Screen None detected (None Detect) U Benzodiazepines Scrn None detected (None Detect) Urine Cocaine Screen None detected (None Detect) U Cannabinoids Screen None detected (None Detect) Serum Alcohol (<10) mg/dL Result Diagrams: 09/30/17 10:00 09/30/17 10:00 Lab Statement: Any lab studies that have been ordered have been reviewed, and results considered in the medical decision making process. - EKG 07:44 EKG Rhythm: Sinus Rhythm - 68 BPM Course/Dx - Course Course Of Treatment: Follow up with PCP in 2 days. Assessment/Plan: Ms. Jacques remained stable and essentially asymptomatic while here. - Diagnoses Provider Diagnoses: Overdose Discharge - Discharge Plan Condition: Stable Disposition: HOME Referrals: Julián Horn MD [Primary Care Provider] - The documentation as recorded by the Ab dahl Stephanie accurately reflects the service I personally performed and the decisions made by , Clint Lutz MD.
== END 2017-09-30 12:01 | disposition home or self-care (01) ==
LOC: ED 07:08
DX: T43.591A Poisoning by other antipsychotics and neuroleptics, accidental (unintentional), initial encounter (principal); T43.211A Poisoning by selective serotonin and norepinephrine reuptake inhibitors, accidental (unintentional), initial encounter; Y92.9 Unspecified place or not applicable; Z32.02 Encounter for pregnancy test, result negative; I95.9 Hypotension, unspecified; J45.909 Unspecified asthma, uncomplicated; K21.9 Gastro-esophageal reflux disease without esophagitis; G43.909 Migraine, unspecified, not intractable, without status migrainosus; F41.9 Anxiety disorder, unspecified; F32.9 Major depressive disorder, single episode, unspecified; Z90.49 Acquired absence of other specified parts of digestive tract; Z90.89 Acquired absence of other organs; Z88.5 Allergy status to narcotic agent; Z88.2 Allergy status to sulfonamides; Z88.8 Allergy status to other drugs, medicaments and biological substances; Z88.1 Allergy status to other antibiotic agents; Z91.040 Latex allergy status; F17.210 Nicotine dependence, cigarettes, uncomplicated
CPT/HCPCS: 36415; 80053; 80307; 80320; 80329; 81003; 81015; 83605; 84443; 84702; 85025; 87086; 93005; 99282; G0480

== ENCOUNTER 2017-11-13 07:52 | Emergency (ER) | payer OTHER ==
--- NOTE | 2017-11-13 08:14 | UC ---
Complaint Female HPI - HPI Summary HPI Summary: Patient presents with complaints of urinary frequency and some discomfort post void x 5 days. She denies any abnormal vaginal discharge, bleeding, fever or chills. She reports chronic back pain, which is unchanged today. Denies any incontinence of bowel or bladder. - History Of Current Complaint Stated Complaint: BURNING URINATION Time Seen by Provider: 11/13/17 07:59 Hx Last Menstrual Period: 09/29/2017 - Allergies/Home Medications Allergies/Adverse Reactions: Allergies Allergy/AdvReac Type Severity Reaction Status Date / Time MS Amoxicillin [Amoxicillin] Allergy Severe Airway Verified 09/29/17 16:17 Obstruction MS Ciprofloxacin [From Cipro] Allergy Severe Anaphylatic Verified 09/29/17 16:17 Shock MS Codeine [Codeine] Allergy Severe Shortness Verified 09/29/17 16:17 of Breath MS Topiramate [From Topamax] Allergy Severe Shortness Verified 09/29/17 16:17 of Breath MS Latex [Latex] Allergy Intermediate Rash Verified 09/29/17 16:17 MS Sulfa Antibiotics Allergy Mild GI Upset Verified 09/29/17 16:17 [Sulfa Antibiotics] MS Trazodone [Trazodone] Allergy Mild Anxiety Verified 09/29/17 16:17 MS Prednisone [Prednisone] Allergy Unknown Verified 09/29/17 16:17 Reaction Details PMH/Surg Hx/FS Hx/Imm Hx - Surgical History Surgical History: Yes Surgery Procedure, Year, and Place: right knee surgery 2007 (cyst removal); cholecystectomy 2014. Appendectomy 2016 - Family History Known Family History: Positive: None Negative: Cardiac Disease, Diabetes Family History: NON CONTRIBUTORY - Social History Alcohol Use: Occasionally Substance Use Type: None Smoking Status (MU): Light Every Day Tobacco Smoker Type: Cigarettes Amount Used/How Often: 3-4 / day since January 2015 Have You Smoked in the Last Year: Yes Household Exposure Type: Cigarettes - Immunization History Most Recent Influenza Vaccination: not in a long while Most Recent Tetanus Shot: 06/25/17 Most Recent Pneumonia Vaccination: none Review of Systems All Other Systems Reviewed And Are Negative: Yes Physical Exam Triage Information Reviewed: Yes Complaint Female Dx - Differential Dx/Diagnosis Differential Diagnosis/HQI/PQRI: Other - urinary urgency and frequency Provider Diagnoses: urinary urgency and frequency Discharge - Discharge Plan Condition: Stable Disposition: HOME Patient Education Materials: Urinary Urgency and Frequency (DC) Referrals: Julián Horn MD [Primary Care Provider] -
[2017-11-13 08:16] VITALS: BP 140/88
== END 2017-11-13 08:34 | disposition home or self-care (01) ==
LOC: UCEAST 07:52
DX: R39.15 Urgency of urination (principal); R35.0 Frequency of micturition; Z32.02 Encounter for pregnancy test, result negative; F17.210 Nicotine dependence, cigarettes, uncomplicated
CPT/HCPCS: 81003; 84702; 99211; G0463

== ENCOUNTER 2018-01-23 09:45 | Emergency (ER) | payer OTHER ==
[2018-01-23 09:52] VITALS: BP 119/76
--- NOTE | 2018-01-23 10:19 | UC ---
Respiratory Complaint HPI - HPI Summary HPI Summary: patient c/o of almost a week of nasal d/c, facial congestion and pain, chills and sweats at night, and clogged ears. c/o dry cough and occasional post nasal d /c with greenish mucus - History of Current Complaint Chief Complaint: UCRespiratory Stated Complaint: SORE THROAT Time Seen by Provider: 01/23/18 10:00 Hx Obtained From: Patient Hx Last Menstrual Period: 01/18/18 ?: No Onset/Duration: Gradual Onset, Lasting Days Timing: Constant Severity Initially: Mild Severity Currently: Moderate Pain Intensity: 4 Character: Cough: Nonproductive Aggravating Factors: Allergens, Deep Breaths, Recumbent Position Alleviating Factors: Nothing Associated Signs And Symptoms: Positive: Fever, Chills, Nasal Congestion, Sinus Discomfort Related History: Seasonal Allergies - Risk Factors Pulmonary Embolism Risk Factors: Negative Cardiac Risk Factors: Negative Pseudomonas Risk Factors: Negative Tuberculosis Risk Factors: Negative - Allergies/Home Medications Allergies/Adverse Reactions: Allergies Allergy/AdvReac Type Severity Reaction Status Date / Time amoxicillin Allergy airway Verified 11/13/17 08:21 ciprofloxacin [From Cipro] Allergy anaph Verified 11/13/17 08:21 codeine Allergy Shortness Verified 11/13/17 08:21 of Breath latex Allergy Rash Verified 11/13/17 08:22 prednisone Allergy unk Verified 11/13/17 08:23 Sulfa (Sulfonamide Allergy GI Upset Verified 11/13/17 08:22 Antibiotics) topiramate [From Topamax] Allergy Shortness Verified 11/13/17 08:22 of Breath trazodone Allergy Anxiety Verified 11/13/17 08:22 PMH/Surg Hx/FS Hx/Imm Hx Previously Healthy: Yes Psychological History: Depression - Surgical History Surgical History: Yes Surgery Procedure, Year, and Place: right knee surgery 2007 (cyst removal); cholecystectomy 2014. Appendectomy 2016 - Family History Known Family History: Positive: None Negative: Cardiac Disease, Diabetes Family History: NON CONTRIBUTORY - Social History Alcohol Use: Occasionally Substance Use Type: None Smoking Status (MU): Light Every Day Tobacco Smoker Type: Cigarettes Amount Used/How Often: 3-4 / day since January 2015 Have You Smoked in the Last Year: Yes Household Exposure Type: Cigarettes - Immunization History Most Recent Influenza Vaccination: not in a long while Most Recent Tetanus Shot: 06/25/17 Most Recent Pneumonia Vaccination: none Review of Systems Constitutional: Fever, Chills ENT: Sore Throat, Nasal Discharge, Sinus Congestion, Sinus Pain/Tenderness Respiratory: Cough All Other Systems Reviewed And Are Negative: Yes Physical Exam Triage Information Reviewed: Yes Appearance: No Pain Distress, Well-Nourished, Ill-Appearing Vital Signs: Initial Vital Signs Temp 97.8 F 01/23/18 09:49 Pulse 92 01/23/18 09:49 Resp 16 01/23/18 09:49 BP 119/76 01/23/18 09:49 Pulse Ox 100 01/23/18 09:49 Vital Signs Reviewed: Yes Eyes: Positive: Conjunctiva Clear ENT: Positive: Pharynx normal, TMs normal, Sinus tenderness, Uvula midline Neck: Positive: Supple, Nontender, No Lymphadenopathy Respiratory: Positive: Chest non-tender, Lungs clear, Normal breath sounds, No respiratory distress Cardiovascular: Positive: RRR, No Murmur, Pulses Normal, Brisk Capillary Refill Abdomen Description: Positive: Nontender Bowel Sounds: Positive: Present Musculoskeletal Exam: Normal UC Diagnostic Evaluation - Laboratory O2 Sat by Pulse Oximetry: 100 Respiratory Course/Dx - Course Course Of Treatment: start doxycycline as prescribed, oral hydration, probiotics , nasal toileting and flonase nasal spray prescribed. F/u with PCP - Differential Dx/Diagnosis Provider Diagnoses: acute sinusitis Discharge - Sign-Out/Discharge Documenting (check all that apply): Discharge/Admit/Transfer - Discharge Plan Condition: Stable Disposition: HOME Prescriptions: DOXYcycline CAP(*) [DOXYcycline 100MG CAP(*)] 100 mg PO BID 14 Days #28 cap Fluticasone NASAL SPRAY 50MCG* [Flonase NASAL SPRAY 50MCG*] 2 spray BOTH NARES DAILY #1 btl Patient Education Materials: Sinusitis (ED), Doxycycline (By mouth), Fluticasone (Into the nose), Sodium Chloride (Into the nose) Referrals: Julián Horn MD [Primary Care Provider] - - Billing Disposition and Condition Condition: STABLE Disposition: HOME
== END 2018-01-23 10:30 | disposition home or self-care (01) ==
LOC: UCEAST 09:45
DX: J01.90 Acute sinusitis, unspecified (principal); F32.9 Major depressive disorder, single episode, unspecified; Z88.5 Allergy status to narcotic agent; Z88.0 Allergy status to penicillin; Z88.2 Allergy status to sulfonamides; Z88.8 Allergy status to other drugs, medicaments and biological substances; Z88.1 Allergy status to other antibiotic agents; Z91.040 Latex allergy status; F17.210 Nicotine dependence, cigarettes, uncomplicated
CPT/HCPCS: 99212; G0463

== ENCOUNTER 2018-06-14 09:44 | Emergency (ER) | payer OTHER ==
--- OUTSIDE RECORDS SUMMARY | 2018-06-14 09:50 | XMS REPORT ---
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 infected individuals. HIV antibodies may be undetectable in some stages of the infection and in some clinical conditions. The performance of this assay has not been established for populations of infants or children. Assayed by Chemiluminescence Microparticle Immunoassay on the Siemens Advia Centaur CP. Values obtained with different methods or kits cannot be used interchangeably.The diagnostic specificity of the ADVIA Centaur 1/O/2 Enhanced assay in the low risk population was 99.90% (6052/6058) with a 95% confidence interval of 99.78 to 99.96%. 13 Test Performed by: [place] [address] Automation Operator: Otf Goodman II, M.D., Ph.D. 14 RESULT: Results suggest past infection. ADDITIONAL INFORMATION In most populations, at least 90% of the adult population will have been infected with EBV sometime in the past and therefore, will be positive for anti-VCA/IgG and anti- EBNA. Antibodies to EBNA develop 6-8 weeks after primary infection and remain present for life. Presence of VCA/ IgM antibodies indicates recent primary infection with EBV. Test Performed by: [place] [address] Automation Operator: Otf Goodman II, M.D., Ph.D. 15 Test Performed by: [place] [address] Automation Operator: Otf Goodman II, M.D., Ph.D. 16 ADDITIONAL INFORMATION This test has been modified from the tobacco sample puller's instructions. Its performance characteristics were determined by [facility] in a manner consistent with CLIA requirements. This test has not been cleared or approved by the U.S. Food and Drug Administration. Test Performed by: [place] [address] Automation Operator: Otf Goodman II, M.D., Ph.D. 17 SEE RESULT BELOW Name: ELVIRA PARNELL : [address]: Jose Mendoza OBSTETRICS GYN Acct: [id number] Unit: [id number] AGE: 26 Location: [facility] Re10/08/16 SEX: F Status: REG REF SPEC: [id number] ARASH: 10/08/16-[address]: Jose Mendoza OBSTETRICS GYN REQ: [id number] RECD: 10/08/16 STATUS: COMP _ SOURCE: VAGINAL SPDESC: ORDERED: AudreyYeast DNA COMMENTS: [id number] Procedure Result Reported Site Gardnerella/Yeast: Vaginal DNA Final 10/09/16- 1059 ML Organism 1 Negative Gardnerella Organism 2 Negative Kayleigh The presence of G. vaginalis, although suggestive, is not diagnostic for bacterial vaginosis. Results should be interpreted in conjuction with other clinical and laboratory data available. Women with vaginal discharge should be evaluated for risk factors of cervicitis and pelvic inflammatory disease, toxic shock syndrome (S.aureus), and if present, evaluated for organisms not included in this assay such as N. gonorrhoeae, C. trachomatis, Mobiluncus, Mycoplasma and/or Prevotella. Mixed infections may occur. The performance of this test on patient specimens collected during or immediately after antimicrobial therapy is unknown. The presence or absence of Kayleigh species, or G. vaginalis cannot be used as a test for therapeutic success or failure. * ML - MAIN LAB ([facility]) . END OF REPORT * ML=Testing performed at Main Lab DEPARTMENT OF PATHOLOGY, [address] [place] [address] Giovani Shore M.D. Director [facility] # [id number] 18 [id number] GC/Chlamydia Source?: Endocervical Trichomonas Source: Endocervical 19 SEE RESULT BELOW Name: ELVIRA PARNELL : [address]: Jose Mendoza OBSTETRICS GYN Acct: [id number] Unit: [id number] AGE: 26 Location: [facility] Re10/08/16 SEX: F Status: REG REF SPEC: [id number] ARASH: 10/08/16-1513 [facility] DR: Jose Mendoza NP REQ: [id number] RECD: 10/08/16-1909 STATUS: COMP _ SOURCE: CERVIX SPDESC: ORDERED: Genital Culture COMMENTS: [id number] Procedure Result Reported Site Genital Culture Final 10/10/16- 1002 ML Organism 1 NORMAL BYRON Quantity 1+ Routine genital cultures do not include selective agar for Neisseria gonorrhoeae. Molecular testing offers better test sensitivity and therefore is the preferred test methodology for identifying this organism. * ML - MAIN LAB ([facility]) . END OF REPORT * ML=Testing performed at Main Lab DEPARTMENT OF PATHOLOGY, [address] [place] [address] Giovani Shore M.D. Director [facility] # [id number] 20 Because ethnic data is not always readily available, this report includes an eGFR for both -Americans and non- Americans. The National Kidney Disease Education Program (NKDEP) does not endorse the use of the MDRD equation for patients that are not between the ages of 18 and 70, are , have extremes of body size, muscle mass, or nutritional status, or are non- or non-. According to the National Kidney Foundation, irrespective of diagnosis, the stage of the disease is based on the level of kidney function: Stage Description GFR(mL/min/1.73 m(2)) 1 Kidney damage with normal or decreased GFR 90 2 Kidney damage with mild decrease in GFR 60-89 3 Moderate decrease in GFR 30-59 4 Severe decrease in GFR 15-29 5 Kidney failure <15 (or dialysis) 21 Acute inflammation: >10.00 22 [facility] Severe Sepsis and Septic Shock Management Bundle Measure requires all lactic acids initially measuring >2.0 mmol/L be repeated. 23 Because ethnic data is not always readily available, this report includes an eGFR for both -Americans and non- Americans. The National Kidney Disease Education Program (NKDEP) does not endorse the use of the MDRD equation for patients that are not between the ages of 18 and 70, are , have extremes of body size, muscle mass, or nutritional status, or are non- or non-. According to the National Kidney Foundation, irrespective of diagnosis, the stage of the disease is based on the level of kidney function: Stage Description GFR(mL/min/1.73 m(2)) 1 Kidney damage with normal or decreased GFR 90 2 Kidney damage with mild decrease in GFR 60-89 3 Moderate decrease in GFR 30-59 4 Severe decrease in GFR 15-29 5 Kidney failure <15 (or dialysis) 24 FASTING 10 HOUR 25 Desirable <150 Borderline high 150-199 High 200-499 Very High >500 26 Desirable <200 Borderline high 200-239 High >239 27 Low <40 Desirable: 40-60 High: >60 28 Desirable: <100 mg/dL Near Optimal: 100-129 mg/dL Borderline High: 130-159 mg/dL High: 160-189 mg/dL Very High: >189 mg/dL 29 Warning: A positive result is not useful for establishing a diagnosis of syphilis. In most situations, such a result may reflect a prior treated infection; a negative result can exclude a diagnosis of syphilis except for incubating or early primary disease. 30 It is recognized that currently available assays for the detection of antibodies to HIV-1 and/or HIV-2 may not detect all infected individuals. HIV antibodies may be undetectable in some stages of the infection and in some clinical conditions. The performance of this assay has not been established for populations of infants or children. Assayed by Chemiluminescence Microparticle Immunoassay on the Siemens Advia Centaur CP. Values obtained with different methods or kits cannot be used interchangeably.The diagnostic specificity of the ADVIA Centaur 1/O/2 Enhanced assay in the low risk population was 99.90% (6052/6058) with a 95% confidence interval of 99.78 to 99.96%. 31 Because ethnic data is not always readily available, this report includes an eGFR for both -Americans and non- Americans. The National Kidney Disease Education Program (NKDEP) does not endorse the use of the MDRD equation for patients that are not between the ages of 18 and 70, are , have extremes of body size, muscle mass, or nutritional status, or are non- or non-. According to the National Kidney Foundation, irrespective of diagnosis, the stage of the disease is based on the level of kidney function: Stage Description GFR(mL/min/1.73 m(2)) 1 Kidney damage with normal or decreased GFR 90 2 Kidney damage with mild decrease in GFR 60-89 3 Moderate decrease in GFR 30-59 4 Severe decrease in GFR 15-29 5 Kidney failure <15 (or dialysis) 32 AM 8.7-22.4 PM <10 33 REFERENCE VALUE Cutoff: 500 34 REFERENCE VALUE Cutoff: 200 35 REFERENCE VALUE Cutoff: 100 36 REFERENCE VALUE Cutoff: 150 37 REFERENCE VALUE Cutoff: 300 38 REFERENCE VALUE Cutoff: 300 39 ADDITIONAL INFORMATION This report is intended for use in clinical monitoring or management of patients. It is not intended for use in employment-related testing. 40 REFERENCE VALUE Cutoff: 100 ADDITIONAL INFORMATION This report is intended for use in clinical monitoring or management of patients. It is not intended for use in employment-related testing. Test Performed by: [facility] [employer] - [address] [address] Automation Operator: Otf Goodman II, M.D., Ph.D. 41 SEE RESULT BELOW Name: ELVIRA PARNELL : [address]: Jose Mendoza NP Acct: [id number] Unit: [id number] AGE: 25 Location: [facility] Re02/18/16 SEX: F Status: REG REF SPEC: [id number] ARASH: 02/18/16-[address]: Jose Mendoza NP REQ: [id number] RECD: 02/18/16 STATUS: COMP _ SOURCE: VAGINAL SPDESC: ORDERED: Audrey,Yeast DNA Procedure Result Reported Site Gardnerella/Yeast: Vaginal DNA Final 02/19/16- 1125 ML Organism 1 Negative Kayleigh Organism 2 Negative Gardnerella The presence of G. vaginalis, although suggestive, is not diagnostic for bacterial vaginosis. Results should be interpreted in conjuction with other clinical and laboratory data available. Women with vaginal discharge should be evaluated for risk factors of cervicitis and pelvic inflammatory disease, toxic shock syndrome (S.aureus), and if present, evaluated for organisms not included in this assay such as N. gonorrhoeae, C. trachomatis, Mobiluncus, Mycoplasma and/or Prevotella. Mixed infections may occur. The performance of this test on patient specimens collected during or immediately after antimicrobial therapy is unknown. The presence or absence of Kayleigh species, or G. vaginalis cannot be used as a test for therapeutic success or failure. * ML - MAIN LAB ([facility]) . END OF REPORT * ML=Testing performed at Main Lab DEPARTMENT OF PATHOLOGY, [address] [place] [address] Giovani Shore M.D. Director [facility] # [id number] 42 GC/Chlamydia Source?: Endocervical Trichomonas Source: Endocervical 43 SEE RESULT BELOW Name: ELVIRA PARNELL : [address]: Jose Mendoza NP Acct: [id number] Unit: [id number] AGE: 25 Location: [facility] Re02/18/16 SEX: F Status: REG REF SPEC: [id number] ARASH: 02/18/16-1621 [facility] DR: Jose Mendoza OBSTETRICS GYN REQ: [id number] RECD: 02/18/16 STATUS: SOUT _ ORDERED: IMAGE ANALYSIS COMMENTS: NO TRACKING..NO SNAPPER ON BAG. FINAL DIAGNOSIS Negative for Intraepithelial lesion or Malignancy A. Ectocervical/Endocervical Specimen Adequacy: Satisfactory of evaluation Transformation zone component identified Patient Information: HPV: Thin Layer Pap Test w/reflex to high risk HPV RNA testing when ASCUS Actual Specimen Date: 02/18/16 Last Menstrual Date: 02/11/16 Spec Date if unknown: unknowN ?: N Post Menopausal?: N Hysterectomy?: N Signed (signature on file) STEPHAN Cardona(ASCP) 02/18 1157 This Pap test was evaluated with the assistance of the [employer] Test Imaging System. Due to cytologic findings at the foundry helper microscope, comprehensive manual rescreening by a Insecticide Mixer may be required. The Pap Smear is a screening test designed to aid in the detection of premalignant and malignant conditions of the uterine cervix. It is not a diagnostic procedure and should not be used as the sole means of detecting cervical cancer. Both false- positive and false- negative reports do occur. Depending on your risk status, a Pap smear should be obtained and evaluated every 1-3 years. END OF REPORT * ML=Testing performed at Main Lab DEPARTMENT OF PATHOLOGY, [address] [place] [address] Giovani Shore M.D. Director [facility] # [id number] Procedures Date CPT Code Description Status 05/25/201803241 Inject Tendon Sheath Or Ligament Aponeurosis Eg Plantar Completed Fascia 05/25/201877734 Inject Tendon Sheath Or Ligament Aponeurosis Eg Plantar Completed Fascia 03/09/2017 32289 Plethysmography Determination Lung Volumes & Per Airway Completed Resist 03/09/2017 38613 Pulmonary Function><Bronchodil Completed Encounters Type Date Location Provider CPT E/M Dx Office Visit 05/18/2018 [facility] Internal Kathy Butler, 53212 M65.4 10:30a Medicine - [address] RPA-C Office Visit 02/14/2018 [facility] Julián Horn, 65493 M25.531 11:40a [facility] - [place] Erick Sandhu,FACP M25.532 L30.9 Office Visit 12/01/2017 10:40a [facility] Telma Thompson, OBSTETRICS GYN 85676 M25.531 Medicine - [address] M25.532 Office Visit 02/15/2017 10:10a [facility] Julián Horn, 42927 J45.41 [facility] - [place] Erick Sandhu,FACP J01.10 Office Visit 02/12/2017 1:00p [facility] Kristine Tirado M.D. 04688 M25.561 C.M.A. M22.2x1 Office Visit 01/27/2017 10:30a [facility] Internal Medicine Tabitha Canales, RADHA [address]75 M25.561 - [address] R00.0 Office Visit 12/22/2016 2:20p [facility] Internal Medicine Flaquita Mendoza [address] OBSTETRICS GYN Office Visit 10/08/2016 2:00p [facility] Internal Medicine Flaquita Mendoza [address] OBSTETRICS GYN Office Visit 09/29/2016 12:40p [facility] Internal Medicine Flaquita Mendoza [address] OBSTETRICS GYN Office Visit 08/18/2016 2:20p [facility] Internal Medicine [facility] [address] L27.8 [place] Erick Rodriges M.D. Office Visit 06/02/2016 3:40p [facility] [address] K21.9 [place] Erick Rodriges M.D. Office Visit 05/21/2016 1:00p [facility] Cali Matt, 95572 G43.119 MD Office Visit 05/18/2016 1:20p [facility] Internal Medicine [facility] [address]27 K21.9 [place] Erick Rodriges M.D. Office Visit 05/11/2016 4:20p [facility] [address] R10.9 [place] Erick Rodriges M.D. Office Visit 03/17/2016 2:00p [facility] Internal Medicine - Jose Mendoza, [address] OBSTETRICS GYN J30.9 R06.2 G44.209 Office Visit 02/18/2016 1:40p [facility] Internal Medicine - Jose Mendoza, EMELIA [address] F33.2 R30.0 G44.209 Z11.3 R63.5 Plan of Care 05/25/2018 - Raisa Bryant M.D.M65.4 Radial styloid tenosynovitis [de Quervain]Follow up:Follow up: As needed
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
[2018-06-14 10:01] VITALS: BP 121/73
--- NOTE | 2018-06-14 11:01 | RAD ---
HISTORY: back pain COMPARISONS: None VIEWS: 5 , Frontal, lateral, coned-down lateral sacral, and bilateral oblique views of the lumbar spine. FINDINGS: There is transitional last lumbar type vertebral body which will be labeled S1 for the purposes of counting. ALIGNMENT: The alignment is normal. VERTEBRAL BODIES: The vertebral body heights are normal. The interpedicular distances are normal. There is partial lumbarization of S1 vertebral body. JOINTS: The facet joints are normal. INTERVERTEBRAL DISCS: The intervertebral disc heights are normal. SOFT TISSUE: Unremarkable. OTHER: The pelvis is unremarkable. The lung bases are clear. Surgical clips are noted in the right upper quadrant. IMPRESSION: UNREMARKABLE RADIOGRAPHS OF THE LUMBAR SPINE.
--- NOTE | 2018-06-14 11:09 | UC ---
Back Pain HPI - HPI Summary HPI Summary: 27 year old female with history of recurrent low back pain presents with new onset of low back pain 4-5 days ago. Describes pain as sharp. Occasionally radiates down her left leg to her ankle. Pain worsens with ambulation, bending , and lifting. She has taken naproxen 500 mg 1 dose prior to arrival with minimal relief. Denies injury, fever, chills, abdominal pain, nausea, vomiting , dysuria, frequency, urgency, numbness, tingling, weakness of lower extremities , loss of bowel or bladder control. Patient reports no imaging with previous episodes. - History of Current Complaint Chief Complaint: UCBackPain Stated Complaint: LOWER BACK PAIN Time Seen by Provider: 06/14/18 10:09 Hx Obtained From: Patient Hx Last Menstrual Period: 06/14/18 ?: No - not presently sexually active Onset/Duration: Gradual Onset, Lasting Days - 4-5 Timing: Constant Severity Initially: Moderate Severity Currently: Moderate Pain Intensity: 6 Back Pain: Is Discrete @ - Lower back Character: Sharp Aggravating Factor(s): Movement, Lifting, Bending, Walking Alleviating Factor(s): Nothing Associated Signs And Symptoms: Positive: Pain with Weight Bearing. Negative: Fever, Weakness, Numbness, Tingling, Abdominal Pain, Flank Pain, Bladder Incontinence, Bowel Incontinence - Allergies/Home Medications Allergies/Adverse Reactions: Allergies Allergy/AdvReac Type Severity Reaction Status Date / Time amoxicillin Allergy Unknown Verified 06/14/18 09:51 Reaction Details ciprofloxacin [From Cipro] Allergy Anaphylatic Verified 06/14/18 09:51 Shock codeine Allergy Shortness Verified 06/14/18 09:51 of Breath latex Allergy Rash Verified 06/14/18 09:51 prednisone Allergy Unknown Verified 06/14/18 09:51 Reaction Details Sulfa (Sulfonamide Allergy GI Upset Verified 06/14/18 09:51 Antibiotics) topiramate [From Topamax] Allergy Shortness Verified 06/14/18 09:51 of Breath trazodone Allergy Anxiety Verified 06/14/18 09:51 Home Medications: Home Medications Naproxen [Naprosyn 500 mg tab] 500 mg PO DAILY 06/14/18 [History Confirmed 06/14] Venlafaxine HCl 150 mg PO DAILY 06/14/18 [History Confirmed 06/14/18] busPIRone TAB* [Buspar *] 30 mg PO BID 06/14/18 [History Confirmed 06/14/18] PMH/Surg Hx/FS Hx/Imm Hx Previously Healthy: Yes Respiratory History: Asthma Psychological History: Depression - Surgical History Surgical History: Yes Surgery Procedure, Year, and Place: right knee surgery 2007 (cyst removal); cholecystectomy 2015. Appendectomy 2017 - Family History Family History: NON CONTRIBUTORY - Social History Occupation: Employed Full-time Lives: With Family Alcohol Use: None Substance Use Type: None Smoking Status (MU): Light Every Day Tobacco Smoker Type: Cigarettes Amount Used/How Often: pt states vapes Have You Smoked in the Last Year: Yes Household Exposure Type: Cigarettes - Immunization History Most Recent Influenza Vaccination: not in a long while Most Recent Tetanus Shot: 06/25/17 Most Recent Pneumonia Vaccination: none Review of Systems Constitutional: Negative Skin: Negative Respiratory: Negative Cardiovascular: Negative Gastrointestinal: Negative Genitourinary: Negative Motor: Negative Musculoskeletal: Other: - See HPI CHPI Is Patient Immunocompromised?: No All Other Systems Reviewed And Are Negative: Yes Physical Exam Triage Information Reviewed: Yes Appearance: Well-Appearing, Well-Nourished, Other: - appears uncomfortable Vital Signs: Initial Vital Signs Temp 98.8 F 06/14/18 09:56 Pulse 88 06/14/18 09:56 Resp 18 06/14/18 09:56 BP 121/73 06/14/18 09:56 Pulse Ox 100 06/14/18 09:56 Vital Signs Reviewed: Yes Respiratory: Positive: Lungs clear, Normal breath sounds, No respiratory distress Cardiovascular: Positive: RRR, No Murmur Abdomen Description: Positive: Nontender, No Organomegaly, Soft. Negative: CVA Tenderness (R), CVA Tenderness (L) Bowel Sounds: Positive: Present Musculoskeletal: Positive: Strength Intact, Other: - Mild tenderness to lower lumbar spine. Pain with flexion. Neurological: Positive: Alert, Muscle Tone Normal Skin Exam: Normal Diagnostics - Radiology No standard instances Xray Interpretation: No Acute Changes Radiology Interpretation Completed By: Radiologist - Patient Name: IRMA PARNELL Medical Record#: [id number] Ordering Physician: Vernon Paulino NP Acct.#: [id number] : 1990 Age: 27 Sex: F [facility] Exam Date: 06/14/18 1028 ADM Status: REG ER Order Information: SP LUMBARSACRAL 4+ VWS Accession Number: [id number] CPT: 65817 HISTORY: back pain COMPARISONS : None VIEWS: 5 , Frontal, lateral, coned-down lateral sacral, and bilateral oblique views of the lumbar spine. FINDINGS: There is transitional last lumbar type vertebral body which will be labeled S1 for the purposes of counting. ALIGNMENT: The alignment is normal. VERTEBRAL BODIES: The vertebral body heights are normal. The interpedicular distances are normal. There is partial lumbarization of S1 vertebral body. JOINTS: The facet joints are normal. INTERVERTEBRAL DISCS: The intervertebral disc heights are normal. SOFT TISSUE: Unremarkable. OTHER: The pelvis is unremarkable. The lung bases are clear. Surgical clips are noted in the right upper quadrant. IMPRESSION: UNREMARKABLE RADIOGRAPHS OF THE LUMBAR SPINE. Back Pain Course/Dx - Course Course Of Treatment: 27 year old female with history of recurrent low back pain presents with onset of low back pain that radiates down her left leg 4-5 days ago. Exam unremarkable. Lumbar X-ray normal. She is already taking naproxen Q12h for pain. Will add cyclobezaprine PRN as well as conservative treatments. She is to follow up with PCP if no improvement. - Differential Dx/Diagnosis Differential Diagnosis/HQI/PQRI: Herniated Disc Provider Diagnoses: Acute low back pain Discharge - Sign-Out/Discharge Documenting (check all that apply): Patient Departure All imaging exams completed and their final reports reviewed: Yes - Discharge Plan Condition: Stable Disposition: HOME Prescriptions: Cyclobenzaprine HCl 10 mg PO Q8HR #15 tablet Patient Education Materials: Acute Low Back Pain (ED), Lower Back Exercises (ED ) Forms: *Work Release Referrals: Julián Horn MD [Primary Care Provider] - 5 Days (If no improvement.) Additional Instructions: The x-ray of your lower back performed in the clinic today was normal. Continue taking naproxen 1 tablet every 12 hours with food for pain. I have prescribed to cyclobenzaprine 10 mg take one tablet every 8 hours as needed for severe pain or spasm. This medication will cause drowsiness do not take and drive or operate machinery. You should try to remain as active as possible however avoid heavy lifting and strenuous activities the next several days. I have provided some back exercises that you can use at home. I would recommend starting these in the next couple of days to help strengthen the muscles of your lower back. Apply heat to the affected area for 15-20 minutes 3-4 times a day. He should follow up with your primary care provider in the next 5 days especially if symptoms do not improve. Seek immediate medical attention in the emergency room if you develop any fever greater than 100.5 F, have severe abdominal pain, persistent vomiting, he develop any numbness tingling or weakness of her legs, are unable to ambulate, or lose control of her bowel or bladder. - Billing Disposition and Condition Condition: STABLE Disposition: Home - Attestation Statements Provider Attestation: I was available for consult. This patient was seen by the NOBLE. The patient was not presented to, seen by, or examined by me. -Amy
== END 2018-06-14 11:19 | disposition home or self-care (01) ==
LOC: UCEAST 09:44
DX: M54.5 Low back pain (principal); F17.210 Nicotine dependence, cigarettes, uncomplicated; F32.9 Major depressive disorder, single episode, unspecified; Z79.899 Other long term (current) drug therapy; Z88.3 Allergy status to other anti-infective agents; Z88.5 Allergy status to narcotic agent; Z88.0 Allergy status to penicillin; Z88.8 Allergy status to other drugs, medicaments and biological substances
CPT/HCPCS: 72110; 99212; G0463

== ENCOUNTER 2018-06-20 07:53 | Emergency (ER) | payer SELFPAY ==
[2018-06-20 08:07] VITALS: BP 113/78
[2018-06-20] MEDS ORDERED: Fluorescein Sod TOPICAL 0.6* 0.6 MG TEST OPHTHALMIC ONE (08:38)
[2018-06-20] MEDS ORDERED: Artificial Tears* 15 ML BTL BOTH EYES ONE (09:05)
--- NOTE | 2018-06-20 09:10 | UC ---
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 Chemical details of product brought with patient to visit. Patient states noted eye irriation around 6AM this AM, worsened with burring, irritation, some watering from R eye, symptoms in R eye worse. Went to eye wash station- water was cold at first but progressively got warmer, irritated eye more. Water was nto scalding, does not feel burnt eye. Denies FB sensation. Eyes continue to bother her, however, R>L. no watering , burning currently. + irritation. - History of Current Complaint Chief Complaint: UCEye Stated Complaint: EYE COMPLAINT Time Seen by Provider: 06/20/18 08:27 Hx Obtained From: Patient Hx Last Menstrual Period: 06/11/18 ?: No Onset/Duration: Gradual Onset - since 6AM Timing: Constant Severity Initially: Moderate Severity Currently: Mild Pain Intensity: 2 Pain Scale Used: 0-10 Numeric Location of Injury: Conjunctiva, Globe Character: Sharp, Throbbing Aggravating Factor(s): Light - patient has chronic headaches which light irritates, unsure if light due to headache or eye irritation - Allergies/Home Medications Allergies/Adverse Reactions: Allergies Allergy/AdvReac Type Severity Reaction Status Date / Time amoxicillin Allergy Unknown Verified 06/20/18 08:08 Reaction Details ciprofloxacin [From Cipro] Allergy Anaphylatic Verified 06/20/18 08:08 Shock codeine Allergy Shortness Verified 06/20/18 08:08 of Breath latex Allergy Rash Verified 06/20/18 08:08 prednisone Allergy Unknown Verified 06/20/18 08:08 Reaction Details Sulfa (Sulfonamide Allergy GI Upset Verified 06/20/18 08:08 Antibiotics) topiramate [From Topamax] Allergy Shortness Verified 06/20/18 08:08 of Breath trazodone Allergy Anxiety Verified 06/20/18 08:08 PMH/Surg Hx/FS Hx/Imm Hx Previously Healthy: Yes - psych complaints, headache - Surgical History Surgical History: Yes Surgery Procedure, Year, and Place: right knee surgery 2007 (cyst removal); cholecystectomy 2014. Appendectomy 2016 - Family History Known Family History: Positive: None Negative: Cardiac Disease, Diabetes Family History: NON CONTRIBUTORY - Social History Alcohol Use: None Substance Use Type: None Smoking Status (MU): Light Every Day Tobacco Smoker Type: Cigarettes Amount Used/How Often: pt states vapes Have You Smoked in the Last Year: Yes Household Exposure Type: Cigarettes - Immunization History Most Recent Influenza Vaccination: not in a long while Most Recent Tetanus Shot: 06/25/17 Most Recent Pneumonia Vaccination: none Review of Systems Constitutional: Negative Skin: Negative Eyes: Drainage, Eye Redness, Photophobia ENT: Negative Respiratory: Negative Cardiovascular: Negative Gastrointestinal: Negative Genitourinary: Negative Is Patient Immunocompromised?: No All Other Systems Reviewed And Are Negative: Yes Physical Exam Triage Information Reviewed: Yes Appearance: Well-Appearing, No Pain Distress, Well-Nourished Vital Signs: Initial Vital Signs Temp 98 F 06/20/18 08:03 Pulse 78 06/20/18 08:03 Resp 16 06/20/18 08:03 BP 113/78 06/20/18 08:03 Pulse Ox 100 06/20/18 08:03 Vital Signs Reviewed: Yes Eyes: Positive: Conjunctiva Clear, Other: - fundo exam normal, PERRLA, EMOI, fluo stain negative for abrasions, pH WNLs. Neurological Exam: Normal Neurological: Positive: Other: - EMOI, Psychological: Positive: Other: - anxious consistent with h/o anxiety Skin Exam: Normal Eye Complaint Course/Dx - Course Course Of Treatment: eye exam and pH normal, patient symptoms improving, continue to monitor at home, saline eye drops only to eye, work note given if no improvement, work form filled out, recommended protective eye wear. - Differential Dx/Diagnosis Differential Diagnosis/HQI/PQRI: Other Provider Diagnoses: chemical exposure to b/l eyes, mild Discharge - Sign-Out/Discharge Documenting (check all that apply): Patient Departure All imaging exams completed and their final reports reviewed: No Studies - Discharge Plan Condition: Good Disposition: HOME Forms: *Work Release Referrals: Julián Horn MD [Primary Care Provider] - Mitch Tony MD [Medical Doctor] - Additional Instructions: - Use saline eye drops as needed today to decrease irritation, dryness - Do not put anything else in eye - Go to ophthamologist within 24-48 hours if symptoms increase or new symptoms develop, visual changes occur - Billing Disposition and Condition Condition: GOOD Disposition: Home
== END 2018-06-20 09:33 | disposition home or self-care (01) ==
LOC: UCEAST 07:53
DX: H57.8 Other specified disorders of eye and adnexa (principal); Z77.098 Contact with and (suspected) exposure to other hazardous, chiefly nonmedicinal, chemicals; Z88.5 Allergy status to narcotic agent; Z88.0 Allergy status to penicillin; Z88.2 Allergy status to sulfonamides; Z88.8 Allergy status to other drugs, medicaments and biological substances; Z88.1 Allergy status to other antibiotic agents; Z91.040 Latex allergy status; F17.210 Nicotine dependence, cigarettes, uncomplicated
CPT/HCPCS: 83986; 99211; A9270-GY; G0463

== ENCOUNTER 2019-01-09 00:39 | Emergency (ER) | payer OTHER ==
[2019-01-09] MEDS ORDERED: Acetaminophen TAB* 325 MG PO ONE (01:07)
[2019-01-09 01:25] LABS: ABS Basophils 0 10^3/ul (0-0.2); ABS Eosinophils 0.2 10^3/ul (0-0.6); ABS Lymphocytes 2.5 10^3/ul (1.0-4.8); ABS Monocytes 0.6 10^3/ul (0-0.8); ABS Neutrophils 4.7 10^3/ul (1.5-7.7); ABS Nucleated RBC 0 10^3/ul; Eosinophil % 2.1 %; Hematocrit 37 % (33-41); Hemoglobin 12.6 g/dL (12.0-16.0); Lymphocyte % 31.3 %; Mean Corpuscular HGB Conc 35 g/dL (31-36); Mean Corpuscular Hemoglobin 31 pg (27-31); Mean Corpuscular Volume 90 fL (80-97); Mean Platelet Volume 7.6 fL (7.4-10.4); Nucleated Red Blood Cells % 0.1; Platelet Count 306 10^3/uL (150-450); Red Blood Count 4.04 10^6 /uL (3.70-4.87); Red Cell Distribution Width 12 % (10.5-15)
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
[2019-01-09 01:43] LABS: Albumin 3.8 g/dL (3.2-5.2); Albumin/Globulin Ratio 1.6 (1-3); BUN/Creatinine Ratio 14.3 (8-20); Calcium 8.7 mg/dL (8.6-10.3); EGFR African American 154.9 (>60); Globulin 2.4 g/dL (2-4); Potassium 3.4 mmol/L (3.5-5.0); Total Bilirubin 0.2 mg/dL (0.2-1.0); Total Protein 6.2 g/dL (6.4-8.9)
[2019-01-09 02:06] LABS: Urine Appearance Clear; Urine Bacteria Absent (Absent); Urine Bilirubin Negative (Negative); Urine Blood Negative (Negative); Urine Color Yellow; Urine Glucose Negative (Negative); Urine Ketones Negative (Negative); Urine Nitrite Negative (Negative); Urine Protein Negative (Negative); Urine Red Blood Cell Absent (Absent); Urine Specific Gravity 1.019 (1.010-1.030); Urine Squamous Epithelial Cell Present (Absent); Urine Urobilinogen Negative (Negative); Urine White Blood Cell Trace(0-5/hpf) (Absent)
[2019-01-09] MEDS ORDERED: Metoclopramide TAB* 10 MG PO ONE (02:45)
[2019-01-09] MEDS ORDERED: diPHENhydraMINE PO* 25 MG PO ONE (02:45)
--- NOTE | 2019-01-09 03:16 | ED ---
Progress - Progress Note Progress Note: Patient is received as a sign out from SAMUEL Siddiqui at 0230 01/09/19 pending US of patient. Transvaginal US IMPRESSION: 1. Early intrauterine with no pole visualized. Short-term followup ultrasound is recommended to evaluate its viability. 2. Trace subchorionic hemorrhage. This report was reviewed by Dr. Mckeon. Results of US were discussed with patient, patient has blighted ovum vs early . Patient referred to OBGYN and is advised to have US next week. She is agreeable with this. Re-Evaluation - Re-Evaluation First Eval Re-Evaluation Time: 02:40 Change: Worse Comment: pain in LLQ Second Eval Re-Evaluation Time: 04:25 Comment: US results discussed, patient will be discharged and is referred to OBGYN and to get US within next week. Course/Dx - Course Course Of Treatment: Patient is received as a sign out from SAMUEL Siddiqui at 0230 01/09/19 pending US of patient. Transvaginal US IMPRESSION: 1. Early intrauterine with no pole visualized. Short-term. followup ultrasound is recommended to evaluate its viability. 2. Trace subchorionic hemorrhage. Results of US were discussed with patient, patient has blighted ovum vs early . Patient referred to OBGYN and is advised to have US next week. She will be discharged to home, patient is agreeable with this. - Diagnoses Provider Diagnoses: Discharge - Sign-Out/Discharge Documenting (check all that apply): Patient Departure - discharge Patient Received Moderate/Deep Sedation with Procedure: No - Discharge Plan Condition: Stable Disposition: HOME Patient Education Materials: (ED) Forms: *Work Release Referrals: Julián Horn MD [Primary Care Provider] - 3 Days Chandrika Dumas MD [Medical Doctor] - 3 Days Additional Instructions: RETURN TO ED FOR ANY NEW OR WORSENING SYMPTOMS. FOLLOW UP WITH YOUR PRIMARY CARE PHYSICIAN AND OBGYN, GET FOLLOW UP ULTRASOUND WITHIN NEXT WEEK. - Attestation Statements Document Initiated by Scribe: Yes Documenting Scribe: SHANKAR ART Provider For Whom Scribe is Documenting (Include Credential): SHAHIDA MCKEON MD Scribe Attestation: SHANKAR Duong, scribed for SHAHIDA MCKEON MD on 01/09/19 at 0432. Status of Scribe Document: Ready
[2019-01-09 04:45] VITALS: BP 105/69
== END 2019-01-09 04:46 | disposition home or self-care (01) ==
LOC: ED 00:39
DX: O16.1 Unspecified maternal hypertension, first trimester (principal); O99.331 Smoking (tobacco) complicating pregnancy, first trimester; F17.290 Nicotine dependence, other tobacco product, uncomplicated; J45.909 Unspecified asthma, uncomplicated; Z3A.00 Weeks of gestation of pregnancy not specified; Z88.3 Allergy status to other anti-infective agents; Z88.5 Allergy status to narcotic agent; Z88.8 Allergy status to other drugs, medicaments and biological substances; Z91.040 Latex allergy status; Z88.2 Allergy status to sulfonamides
CPT/HCPCS: 36415; 76817; 80053; 81003; 81015; 84702; 85025; 86900; 86901; 87086; 99283; A9270-GY

== ENCOUNTER 2019-01-17 01:50 | Emergency (ER) | payer OTHER ==
[2019-01-17] MEDS ORDERED: NS 0.9% 1000 ML** 1,000 ML IV ONE (01:54)
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
[2019-01-17 02:18] LABS: ABS Basophils 0 10^3/ul (0-0.2); ABS Eosinophils 0.1 10^3/ul (0-0.6); ABS Lymphocytes 2.9 10^3/ul (1.0-4.8); ABS Monocytes 0.9 10^3/ul (0-0.8); ABS Neutrophils 7.5 10^3/ul (1.5-7.7); ABS Nucleated RBC 0 10^3/ul; Hematocrit 37 % (33-41); Hemoglobin 12.7 g/dL (12.0-16.0); Lymphocyte % 25.3 %; Mean Corpuscular HGB Conc 34 g/dL (31-36); Mean Corpuscular Hemoglobin 31 pg (27-31); Mean Corpuscular Volume 91 fL (80-97); Mean Platelet Volume 7.5 fL (7.4-10.4); Nucleated Red Blood Cells % 0; Platelet Count 308 10^3/uL (150-450); Red Blood Count 4.07 10^6 /uL (3.70-4.87); Red Cell Distribution Width 12 % (10.5-15); White Blood Count 11.4 10^3/uL (3.5-10.8)
[2019-01-17 02:54] LABS: Urine Appearance Cloudy; Urine Bacteria Absent (Absent); Urine Bilirubin Negative (Negative); Urine Blood Negative (Negative); Urine Color Yellow; Urine Glucose Negative (Negative); Urine Ketones Negative (Negative); Urine Nitrite Negative (Negative); Urine Protein Negative (Negative); Urine Red Blood Cell Absent (Absent); Urine Specific Gravity 1.024 (1.010-1.030); Urine Squamous Epithelial Cell Present (Absent); Urine Urobilinogen Negative (Negative); Urine White Blood Cell 1+(6-10/hpf) (Absent)
[2019-01-17 03:02] LABS: Albumin/Globulin Ratio 1.5 (1-3); BUN/Creatinine Ratio 13.2 (8-20); Calcium 8.8 mg/dL (8.6-10.3); EGFR African American 123.8 (>60); EGFR Non-African American 102.3 (>60); Globulin 2.7 g/dL (2-4); Potassium 3.4 mmol/L (3.5-5.0); Total Bilirubin 0.3 mg/dL (0.2-1.0); Total Protein 6.7 g/dL (6.4-8.9)
[2019-01-17 04:11] VITALS: BP 119/65
== END 2019-01-17 04:11 | disposition home or self-care (01) ==
LOC: ED 01:50
DX: O20.0 Threatened abortion (principal); Z3A.01 Less than 8 weeks gestation of pregnancy; I95.9 Hypotension, unspecified; J45.909 Unspecified asthma, uncomplicated; K21.9 Gastro-esophageal reflux disease without esophagitis; G43.909 Migraine, unspecified, not intractable, without status migrainosus; G89.21 Chronic pain due to trauma; M54.9 Dorsalgia, unspecified; F41.9 Anxiety disorder, unspecified; F32.9 Major depressive disorder, single episode, unspecified; Z90.49 Acquired absence of other specified parts of digestive tract; Z90.89 Acquired absence of other organs; Z88.5 Allergy status to narcotic agent; Z88.0 Allergy status to penicillin; Z88.2 Allergy status to sulfonamides; Z88.8 Allergy status to other drugs, medicaments and biological substances; Z88.1 Allergy status to other antibiotic agents; Z91.040 Latex allergy status; F17.290 Nicotine dependence, other tobacco product, uncomplicated
CPT/HCPCS: 36415; 80053; 81003; 81015; 83605; 84702; 85025; 86850; 86900; 86901; 87086; 99282

== ENCOUNTER 2019-01-20 22:41 | Emergency (ER) | payer OTHER ==
--- OUTSIDE RECORDS SUMMARY | 2019-01-20 23:16 | XMS REPORT | Continuity of Care Document ---
:1990 External Reference #:[id number] Author Name Mary Almeida Care Team Providers Name Role Phone Royer Horn MD Primary Care Physician Unavailable Payers Date Identification Numbers Payment Provider Subscriber Policy Number: [id number] Joseph Jacques PayID: [id number] [address] [place] [address] Advance Directives Description No Information Available Problems Description No Information Family History Date Family Member(s) Observation Comments Father A&W Mother due to Breast Cancer () First Sister A&W Second Sister A&W Third Sister A&W Paternal Grandfather Alive, HX Unknown Paternal Grandmother due to Cancer () Maternal Grandfather Cancer Maternal Grandmother Diabetes Social History Type Date Description Comments Sex Unknown Education Highest level completed, 12th grade Marital Status Single Lives With Significant Other Pets several cats Occupation Overnights at [employer] Cigarette Use Current Cigarette Smoker pt vapes ETOH Use Denies alcohol use Recreational Drug Use Denies Drug Use Exercise Type/Frequency Exercises sporadically Seat Belt/Car Seat Always uses seat belt Currently Active Patient is currently sexually active Contraceptive Methods None STD's No STD History Allergies, Adverse Reactions, Alerts Active Allergies Reaction Severity Comments Date Latex 01/18/2019 Cipro 01/18/2019 Topamax 01/18/2019 Amoxicillin 01/18/2019 Medications Active Medications SIG Qnty Indications Ordering Provider Date Venlafaxine HCL ER take 3 tablets by Unknown 150mg mouth once daily Tablets ER 24HR Sertraline HCL Unknown Immunizations Description No Information Available Vital Signs Date Vital Result Comment 01/18/2019 2:00pm BP Systolic 130 mmHg BP Diastolic 70 mmHg Height 60 inches 5'0" Weight 130.00 lb BMI (Body Mass Index) 25.4 kg/m2 Last Menstrual Period [id number] 1 Parity 0 Results Description No Information Available Procedures Date Code Description Status 01/18/2019 36783 OB Ultrasound First Trimester Completed Encounters Description No Information Available Plan of Treatment No Information Available
[2019-01-20 23:28] LABS: ABS Basophils 0 10^3/ul (0-0.2); ABS Eosinophils 0 10^3/ul (0-0.6); ABS Monocytes 0.8 10^3/ul (0-0.8); ABS Neutrophils 8.3 10^3/ul (1.5-7.7); ABS Nucleated RBC 0 10^3/ul; Eosinophil % 0.4 %; Hematocrit 44 % (33-41); Hemoglobin 14.9 g/dL (12.0-16.0); Lymphocyte % 18.2 %; Mean Corpuscular HGB Conc 34 g/dL (31-36); Mean Corpuscular Hemoglobin 31 pg (27-31); Mean Corpuscular Volume 92 fL (80-97); Mean Platelet Volume 7.6 fL (7.4-10.4); Nucleated Red Blood Cells % 0; Platelet Count 371 10^3/uL (150-450); Red Cell Distribution Width 12 % (10.5-15); White Blood Count 11.2 10^3/uL (3.5-10.8)
[2019-01-20 23:41] LABS: Albumin 4.4 g/dL (3.2-5.2); Albumin/Globulin Ratio 1.5 (1-3); BUN/Creatinine Ratio 14.8 (8-20); Calcium 9.4 mg/dL (8.6-10.3); EGFR African American 140.3 (>60); Potassium 3.9 mmol/L (3.5-5.0); Total Bilirubin 0.3 mg/dL (0.2-1.0); Total Protein 7.4 g/dL (6.4-8.9)
[2019-01-21] MEDS ORDERED: Ondansetron ODT TAB* 4 MG SL PRN (02:17)
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
[2019-01-21 02:21] VITALS: BP 130/76
[2019-01-21] MEDS ORDERED: Ondansetron ODT TAB* 4 MG ONE (02:28)
== END 2019-01-21 02:33 | disposition home or self-care (01) ==
LOC: ED 22:41
DX: O26.91 Pregnancy related conditions, unspecified, first trimester (principal); O99.331 Smoking (tobacco) complicating pregnancy, first trimester; O99.341 Other mental disorders complicating pregnancy, first trimester; R55 Syncope and collapse; I95.9 Hypotension, unspecified; J45.909 Unspecified asthma, uncomplicated; K21.9 Gastro-esophageal reflux disease without esophagitis; F41.8 Other specified anxiety disorders; F17.290 Nicotine dependence, other tobacco product, uncomplicated; Z88.3 Allergy status to other anti-infective agents; Z88.5 Allergy status to narcotic agent; Z91.040 Latex allergy status; Z88.2 Allergy status to sulfonamides; Z88.8 Allergy status to other drugs, medicaments and biological substances; Z3A.01 Less than 8 weeks gestation of pregnancy
CPT/HCPCS: 36415; 80053; 84484; 84702; 85025; 93005; 99282; A9270-GY

== ENCOUNTER 2019-03-25 16:36 | Emergency (ER) | payer MEDICAID, OTHER ==
[2019-03-25 16:49] VITALS: BP 100/66
--- NOTE | 2019-03-25 17:02 | UC ---
Respiratory Complaint HPI - HPI Summary HPI Summary: patient began with ST 3 days ago, progressed to nasal congestion, today has facial pressure and PND that is causing cough. she is 16 weeks and has seen OB. she has taken only tylenol for symps thus far with little relief - History of Current Complaint Chief Complaint: UCRespiratory Stated Complaint: CONGESTION, SORE THROAT Time Seen by Provider: 03/25/19 16:39 Hx Obtained From: Patient Hx Last Menstrual Period: 11/06/18 ?: Yes Onset/Duration: Gradual Onset Timing: Constant Severity Initially: Mild Severity Currently: Moderate Pain Intensity: 6 Character: Cough: Nonproductive Aggravating Factors: Other - PND Associated Signs And Symptoms: Positive: Nasal Congestion, Sinus Discomfort. Negative: Fever, Chills, Wheezing, Hemoptysis, Dizziness, Calf Pain, Calf Swelling - Allergies/Home Medications Allergies/Adverse Reactions: Allergies Allergy/AdvReac Type Severity Reaction Status Date / Time amoxicillin Allergy Unknown Verified 03/25/19 16:49 Reaction Details ciprofloxacin [From Cipro] Allergy Anaphylatic Verified 03/25/19 16:49 Shock codeine Allergy Shortness Verified 03/25/19 16:49 of Breath latex Allergy Rash Verified 03/25/19 16:49 prednisone Allergy Unknown Verified 03/25/19 16:49 Reaction Details Sulfa (Sulfonamide Allergy GI Upset Verified 03/25/19 16:49 Antibiotics) topiramate [From Topamax] Allergy Shortness Verified 03/25/19 16:49 of Breath trazodone Allergy Anxiety Verified 03/25/19 16:49 Home Medications: Home Medications Cetirizine* [ZyrTEC 10 MG TAB*] 10 mg PO DAILY 03/25/19 [History Confirmed 03/25] PMH/Surg Hx/FS Hx/Imm Hx Previously Healthy: Yes Respiratory History: Other - seasonal allergies - Surgical History Surgical History: Yes Surgery Procedure, Year, and Place: right knee surgery 2007 (cyst removal); cholecystectomy 2014. Appendectomy 2016 - Family History Known Family History: Negative: Cardiac Disease, Diabetes - Social History Occupation: Employed Full-time Lives: With Family Alcohol Use: None Substance Use Type: None Smoking Status (MU): Former Smoker Type: eCigarettes Amount Used/How Often: pt states vapes Have You Smoked in the Last Year: Yes Household Exposure Type: Cigarettes - Immunization History Most Recent Influenza Vaccination: not in a long while Most Recent Tetanus Shot: 06/25/17 Most Recent Pneumonia Vaccination: none Review of Systems All Other Systems Reviewed And Are Negative: Yes Constitutional: Positive: Fatigue Skin: Positive: Negative. Negative: Rash ENT: Positive: Sore Throat, Nasal Discharge, Sinus Congestion, Sinus Pain/ Tenderness. Negative: Ear Ache Respiratory: Positive: Cough Cardiovascular: Positive: Negative Gastrointestinal: Positive: Negative. Negative: Abdominal Pain Neurological: Positive: Negative Psychological: Positive: Negative Is Patient Immunocompromised?: No Physical Exam Triage Information Reviewed: Yes Appearance: Well-Appearing, No Pain Distress, Well-Nourished Vital Signs: Initial Vital Signs Temp 98.3 F 03/25/19 16:46 Pulse 95 03/25/19 16:46 Resp 18 03/25/19 16:46 BP 100/66 03/25/19 16:46 Pulse Ox 100 03/25/19 16:46 Vital Signs Reviewed: Yes Eyes: Positive: Conjunctiva Clear ENT: Positive: Nasal congestion, TMs normal, Sinus tenderness, Other - thick PND , pharyngeal irritation. Negative: Tonsillar swelling Neck exam: Normal Neck: Positive: Supple, Nontender, No Lymphadenopathy Respiratory Exam: Normal Respiratory: Positive: Lungs clear Cardiovascular Exam: Normal Cardiovascular: Positive: RRR Psychological Exam: Normal Skin Exam: Normal Skin: Negative: Rashes Respiratory Course/Dx - Differential Dx/Diagnosis Differential Diagnosis/HQI/PQRI: Asthma, Bronchitis, Sinusitis Provider Diagnosis: Sinusitis Discharge - Sign-Out/Discharge Documenting (check all that apply): Patient Departure All imaging exams completed and their final reports reviewed: No Studies - Discharge Plan Condition: Good Disposition: HOME Prescriptions: Azithromycin TAB* [Zithromax TAB (Z-CASIMIRO) 250 mg #6 tabs] 2 tab PO .TODAY, THEN 1 DAILY #1 casimiro Patient Education Materials: Sinusitis (ED) Forms: *Work Release Referrals: Julián Horn MD [Primary Care Provider] - 2 Days (if no better) Additional Instructions: drink plenty of fluids use Tylenol as directed for pain, fever start z-casimiro antibiotic and take as prescribed return if your symptoms worsen at anytime - Billing Disposition and Condition Condition: GOOD Disposition: Home - Attestation Statements Provider Attestation: I was available for consult. This patient was seen by the [facility]. The patient was not presented to, seen by, or examined by me. -Amy
== END 2019-03-25 17:16 | disposition home or self-care (01) ==
LOC: UCEAST 16:36
DX: O26.892 Other specified pregnancy related conditions, second trimester (principal); J32.9 Chronic sinusitis, unspecified; Z87.891 Personal history of nicotine dependence; Z88.5 Allergy status to narcotic agent; Z88.2 Allergy status to sulfonamides; Z91.040 Latex allergy status; Z3A.16 16 weeks gestation of pregnancy
CPT/HCPCS: 99212; G0463

== ENCOUNTER 2019-03-28 12:25 | Emergency (ER) | payer MEDICAID, OTHER ==
[2019-03-28 12:35] VITALS: BP 106/64
--- NOTE | 2019-03-28 12:41 | UC ---
Throat Pain/Nasal Yoel HPI - HPI Summary HPI Summary: 28 yo female presents with sinus pain/pressure/congestion. She was seen here on 03/25 for the same complaint and was given zpak. She is still taking the zpak, but states she has had no improvement of her symptoms. Has not been taking anything OTC or doing nasal rinses. She is currently 16-17 weeks . This is her first . She denies fever, chills, sore throat, cough, rash, abdominal pain, n/v, vaginal bleeding. - History of Current Complaint Chief Complaint: UCGeneralIllness Stated Complaint: RECHECK Time Seen by Provider: 03/28/19 12:40 Hx Obtained From: Patient Hx Last Menstrual Period: 11/06/18 Onset/Duration: Gradual Onset Severity: Severe Pain Intensity: 8 Pain Scale Used: 0-10 Numeric - Allergies/Home Medications Allergies/Adverse Reactions: Allergies Allergy/AdvReac Type Severity Reaction Status Date / Time amoxicillin Allergy Unknown Verified 03/28/19 12:35 Reaction Details ciprofloxacin [From Cipro] Allergy Anaphylatic Verified 03/28/19 12:35 Shock codeine Allergy Shortness Verified 03/28/19 12:35 of Breath latex Allergy Rash Verified 03/28/19 12:35 prednisone Allergy Unknown Verified 03/28/19 12:35 Reaction Details Sulfa (Sulfonamide Allergy GI Upset Verified 03/28/19 12:35 Antibiotics) topiramate [From Topamax] Allergy Shortness Verified 03/28/19 12:35 of Breath trazodone Allergy Anxiety Verified 03/28/19 12:35 PMH/Surg Hx/FS Hx/Imm Hx - Additional Past Medical History Additional PMH: None - Surgical History Surgical History: Yes Surgery Procedure, Year, and Place: right knee surgery 2007 (cyst removal); cholecystectomy 2014. Appendectomy 2017 - Family History Known Family History: Negative: Cardiac Disease, Diabetes - Social History Lives: With Family Alcohol Use: None Substance Use Type: None Smoking Status (MU): Former Smoker Type: eCigarettes Amount Used/How Often: pt states vapes Have You Smoked in the Last Year: Yes Household Exposure Type: Cigarettes - Immunization History Most Recent Influenza Vaccination: not in a long while Most Recent Tetanus Shot: 06/25/17 Most Recent Pneumonia Vaccination: none Review of Systems All Other Systems Reviewed And Are Negative: Yes Constitutional: Positive: Negative Skin: Positive: Negative Eyes: Positive: Negative ENT: Positive: Nasal Discharge, Sinus Congestion, Sinus Pain/Tenderness Respiratory: Positive: Negative Cardiovascular: Positive: Negative Gastrointestinal: Positive: Negative Genitourinary: Positive: Negative Neurovascular: Positive: Negative Neurological: Positive: Negative Psychological: Positive: Negative Physical Exam - Summary Physical Exam Summary: GENERAL: NAD. WDWN. No pain distress. SKIN: No rashes, sores, lesions, or open wounds. HEENT: Head: AT/NC Eyes: EOM intact. Conjunctiva clear without inflammation or discharge. Ears: Hearing grossly normal. TMs intact, no bulging, erythema, or edema. Nose: Nasal mucosa mildly swollen and erythematous without discharge. TTP maxillary < frontal sinus. Positive post nasal drip Throat: Posterior oropharynx without exudates, erythema, or tonsillar enlargement. Uvula midline. NECK: Supple. Nontender. No lymphadenopathy. CHEST: CTAB. No r/r/w. No accessory muscle use. Breathing comfortably and in no distress. CV: RRR. Without m/r/g. Pulses intact. NEURO: Alert. PSYCH: Age appropriate behavior. Triage Information Reviewed: Yes Vital Signs: Initial Vital Signs Temp 98.0 F 03/28/19 12:29 Pulse 93 03/28/19 12:29 Resp 20 03/28/19 12:29 BP 106/64 03/28/19 12:29 Pulse Ox 96 03/28/19 12:29 Vital Signs Reviewed: Yes Throat Pain/Nasal Course/Dx - Course Course Of Treatment: Suspect sinusitis - likely viral. Advised to complete the zpak and try saline nasal rinses and take OTC tylenol as directed. Given her and allergies /adverse reactions, options for treatment are significantly limited. Advised to call her OBGYN to see if they would recommended or be alright with her taking anything else OTC such as flonase. - Differential Dx/Diagnosis Provider Diagnosis: Sinusitis Discharge - Sign-Out/Discharge Documenting (check all that apply): Patient Departure All imaging exams completed and their final reports reviewed: No Studies - Discharge Plan Condition: Stable Disposition: HOME Patient Education Materials: Sinusitis (ED) Forms: *Work Release Referrals: Julián Horn MD [Primary Care Provider] - Additional Instructions: If you develop a fever, shortness of breath, chest pain, new or worsening symptoms - please call your PCP or go to the ED immediately. 1) Continue taking your antibiotic There are many safe home remedies you can use to alleviate your symptoms and recover from a sinus infection: Drink plenty of fluids such as water, broth, and citrus juice. Staying hydrated is important for helping you fight an infection and for clearing a stuffy nose. Use saline nasal irrigation or saline nose drops. You can make your own saline drops by combining 1 cup of warm water with 1/8 tsp salt and a tiny pinch of baking soda. Use a humidifier at night. This will help clear nasal passages. You may also lean over a us of boiling water taken off the stove, place a towel over your head, and breathe in the steam. This helps open your nasal passages and loosens mucus in your chest. Elevating your head with a couple of pillows while lying down may make breathing easier. Using nasal strips also helps open nasal passages. For a sore throat, gargle salt water (1/4 tsp salt per 8 ounces of water), drink warm liquid, or suck on ice. Honey and lemon may also soothe a sore throat. Make sure you are getting plenty of sleep as this will help your immune system fight the infection. - Billing Disposition and Condition Condition: STABLE Disposition: Home - Attestation Statements Provider Attestation: I was available for consult. This patient was seen by the [facility]. The patient was not presented to, seen by, or examined by me. -Amy
== END 2019-03-28 13:00 | disposition home or self-care (01) ==
LOC: UCEAST 12:25
DX: J32.9 Chronic sinusitis, unspecified (principal); Z88.5 Allergy status to narcotic agent; Z88.2 Allergy status to sulfonamides; Z91.040 Latex allergy status
CPT/HCPCS: 99211; G0463

== ENCOUNTER 2019-06-29 16:19 | Emergency (ER) | payer OTHER ==
[2019-06-29 16:33] VITALS: BP 112/73
--- NOTE | 2019-06-29 16:39 | UC ---
Throat Pain/Nasal Yoel HPI - HPI Summary HPI Summary: 28 year old female, 30 weeks with first child, presents with sinus pressure, cough- largely non-productive, feeling warm- no thermometer at home, congestion. Patient states typically gets sick, uses ABX, typically Z-pack, requesting Z-pack. Denies new nausea, N at baseline due to . - History of Current Complaint Chief Complaint: UCGeneralIllness Stated Complaint: sinuS CONGESTION, AND SORE THROAT Time Seen by Provider: 06/29/19 16:36 Hx Obtained From: Patient Hx Last Menstrual Period: 30 weeks Onset/Duration: Gradual Onset, Lasting Days Severity: Moderate Pain Intensity: 6 Pain Scale Used: 0-10 Numeric Cough: Nonproductive - mainly Associated Signs & Symptoms: Positive: Sinus Discomfort, Nasal Discharge. Negative: Dysphagia, Wheezing Related History: Seasonal Allergies - Epiglottits Risk Factors Epiglottis Risk Factors: Negative - Allergies/Home Medications Allergies/Adverse Reactions: Allergies Allergy/AdvReac Type Severity Reaction Status Date / Time amoxicillin Allergy Unknown Verified 06/29/19 16:33 Reaction Details ciprofloxacin [From Cipro] Allergy Anaphylatic Verified 06/29/19 16:33 Shock codeine Allergy Shortness Verified 06/29/19 16:33 of Breath latex Allergy Rash Verified 06/29/19 16:33 prednisone Allergy Unknown Verified 06/29/19 16:33 Reaction Details Sulfa (Sulfonamide Allergy GI Upset Verified 06/29/19 16:33 Antibiotics) topiramate [From Topamax] Allergy Shortness Verified 06/29/19 16:33 of Breath trazodone Allergy Anxiety Verified 06/29/19 16:33 Home Medications: Home Medications Depression Med 1 tab PO DAILY 06/29/19 [History Confirmed 06/29/19] Ondansetron ODT TAB* [Zofran 4 MG Odt TAB*] 4 mg PO Q6H PRN 06/29/19 [History Confirmed 06/29/19] Pnv No.95/Ferrous Fum/Folic AC [ Caplet] 1 each PO DAILY 06/29/19 [ History Confirmed 06/29/19] PMH/Surg Hx/FS Hx/Imm Hx Previously Healthy: Yes - 30 weeks - Surgical History Surgical History: Yes Surgery Procedure, Year, and Place: right knee surgery 2007 (cyst removal); cholecystectomy 2014. Appendectomy 2017 - Family History Known Family History: Positive: Non-Contributory Negative: Cardiac Disease, Diabetes - Social History Alcohol Use: None Substance Use Type: None Smoking Status (MU): Former Smoker Type: eCigarettes Amount Used/How Often: pt states vapes Have You Smoked in the Last Year: Yes Household Exposure Type: Cigarettes - Immunization History Most Recent Influenza Vaccination: not in a long while Most Recent Tetanus Shot: 06/25/17 Most Recent Pneumonia Vaccination: none Review of Systems All Other Systems Reviewed And Are Negative: Yes Constitutional: Positive: Fever - tactile, feeling warm at night, Chills, Fatigue ENT: Positive: Sore Throat, Nasal Discharge, Sinus Congestion, Sinus Pain/ Tenderness Respiratory: Positive: Cough Is Patient Immunocompromised?: No Physical Exam Triage Information Reviewed: Yes Appearance: Well-Appearing, No Pain Distress, Well-Nourished Vital Signs: Initial Vital Signs Temp 97.3 F 06/29/19 16:25 Pulse 103 06/29/19 16:25 Resp 17 06/29/19 16:25 BP 112/73 06/29/19 16:25 Pulse Ox 97 06/29/19 16:25 Vital Signs Reviewed: Yes Eyes: Positive: Conjunctiva Clear ENT: Positive: Pharynx normal, Nasal congestion, TMs normal, Sinus tenderness - minimal max b/l no frontal. Negative: Pharyngeal erythema, TM bulging, TM dull , TM red, Tonsillar swelling, Tonsillar exudate, Uvula midline Neck: Positive: Supple, Nontender, No Lymphadenopathy. Negative: Nuchal Rigidity, Enlarged Nodes @ Respiratory: Positive: Chest non-tender, Lungs clear, Normal breath sounds, No respiratory distress, No accessory muscle use. Negative: Crackles, Rhonchi, Stridor, Wheezing Cardiovascular: Positive: RRR Abdomen Description: Negative: CVA Tenderness (R), CVA Tenderness (L) Neurological: Positive: Alert Psychological Exam: Normal Skin: Negative: Rashes Throat Pain/Nasal Course/Dx - Course Course Of Treatment: exam findings consistent with Rhinosinusitis Discussed increased symptoms with rhinosinusitis with , patient upset not able to have z=pack. Will continue to monitor symptoms, has appt with OB next week. - Get thermometer, monitor temperature. Return with worsening symptoms or fever > 101 - Increase hydration - Humidifier at night for symptoms. - Tylenol as needed for pain - Follow up with residential builder if no improvement within 2-3 days. - Differential Dx/Diagnosis Provider Diagnosis: Rhinosinusitis Discharge ED - Sign-Out/Discharge Documenting (check all that apply): Patient Departure All imaging exams completed and their final reports reviewed: No Studies - Discharge Plan Condition: Good Disposition: HOME Patient Education Materials: Rhinosinusitis (ED) Referrals: No Primary Care Phys,NOPCP [Primary Care Provider] - [facility] [Outside] Additional Instructions: Viral SInusitis - Get thermometer, monitor temperature. Return with worsening symptoms or fever > 101 - Increase hydration - Humidifier at night for symptoms. - Tylenol as needed for pain - Follow up with residential builder if no improvement within 2-3 days. - Billing Disposition and Condition Condition: GOOD Disposition: Home
== END 2019-06-29 17:18 | disposition home or self-care (01) ==
LOC: UCEAST 16:19
DX: O99.513 Diseases of the respiratory system complicating pregnancy, third trimester (principal); J32.9 Chronic sinusitis, unspecified; Z88.0 Allergy status to penicillin; Z88.1 Allergy status to other antibiotic agents; Z88.5 Allergy status to narcotic agent; Z91.040 Latex allergy status; Z88.2 Allergy status to sulfonamides; Z88.8 Allergy status to other drugs, medicaments and biological substances; Z3A.30 30 weeks gestation of pregnancy; Z87.891 Personal history of nicotine dependence
CPT/HCPCS: 87651; 99211; G0463

== ENCOUNTER 2019-08-31 18:28 | Inpatient (IN) | payer OTHER ==
[2019-08-31] MEDS ORDERED: Lactated Ringers 1000 ML Bag* 1,000 ML IV ONE (19:45)
[2019-08-31] MEDS ORDERED: Buffered Lidocaine 1% SYRIN* 1 ML/SYRINGE INTRADERM ONE (19:45)
[2019-08-31] MEDS ORDERED: Lactated Ringers 1000 ML Bag* 1,000 ML IV SCH (20:00)
--- NOTE | 2019-08-31 20:12 | HP ---
General Information - Reason for Visit Contractions picking up in intensity, had some bloody show this afternoon into the evening. - General Information Maternal Age: 29 Grav: 1 Para: 0 SAB: 0 IEA: 0 Estimated Due Date: 09/10/19 Determined By: LMP Maternal Blood Type and Rh: O Positive - Results this Serology/RPR Result: Non-Reactive Rubella Result: Immune HBsAg Result: Negative HIV Result: Negative GBS Culture Result: Positive Past Medical History Delivery History: See Records - No previous pregnancies Pertinent Past Medical History: See Records - Depression/anxiety; RA; migraines; ulcers; eczema Pertinent Past Surgical History: See Records Past Surgical History Comment: Cyst removed from right knee 2007 Cholescystectomy 2015 Appendectomy 2017 Pertinent Family History: See Records Family History Comment: Mother due to breast cancer Diabetes Cancer - Antepartal Records Antepartal Records: Reviewed, Complicated by: - anxiety/depression; GBS positive Review of Systems Constitutional: Uncomfortable CV Complaint: No Respiratory: Shortness of Breath: No Gastrointestinal: Normal Bowel Movement, Nausea Genitourinary: Bleeding, No Dysuria, No Leaking Fluid Musculoskeletal: Contractions Neurological: No Headache, No Visual Changes Movement: Normal Exam Allergies/Adverse Reactions: Allergies lactose Allergy (Mild, Verified 08/31/19 19:12) GI Upset amoxicillin Allergy (Verified 08/31/19 19:12) Rash ciprofloxacin [From Cipro] Allergy (Verified 08/31/19 19:12) Anaphylatic Shock codeine Allergy (Verified 08/31/19 19:12) Nausea And Vomiting latex Allergy (Verified 06/29/19 16:33) Rash prednisone Allergy (Verified 06/29/19 16:33) Unknown Reaction Details Sulfa (Sulfonamide Antibiotics) Allergy (Verified 06/29/19 16:33) GI Upset topiramate [From Topamax] Allergy (Verified 06/29/19 16:33) Shortness of Breath trazodone Allergy (Verified 06/29/19 16:33) Anxiety BP 115/80 T 97.9 HR 86 RR 22 O2 98 - Measurements Height: 5 ft Weight: 167 lb Weight in lbs: 167.884243 Body Mass Index (BMI): 32.5 Pre- Weight: 4.586 oz Weight Gained This : 166.713 lbs and 0.006 ozs - Exam Breast: Breast Exam Deferred CVA: No CVA Tenderness Extremities: No Edema Heart: Normal Rhythm/Heart Sounds HEENT: No Significant Findings Lungs: Clear Bilaterally Rectal: Rectal Exam Deferred Reflexes: DTR 2+, - - no clonus Thyroid: - - WNL @ entry to care - Abdominal Exam Abdomen Exam: Non-Tender, Fundal Height Consistent with Dates - Ultrasound/Biophysical Profile Ultrasound Status: Not Done Targeted Exam Findings Estimated Weight: 6.5-7lb Cervical Exam: 7cm Effacement: 70% Station: -1 Presenting Part: Vertex Membrane Status: Intact Bleeding/Discharge: Bloody Show EFM Findings - External Monitor Findings Baseline Heart Rate: 130 External Monitor Findings: Accelerations Present, No Pattern of Variable or Late Decelerations, Variability Moderate Contractions: Regular, Moderate, Strong, 45-90 Seconds Contraction Frequency: q 3-5 Assessment/Plan - Assessment IUP @ 38+4 weeks gestation in active labor. GBS positive. Intact membranes. No evidence acidemia - Obstetrical Risk Factors Obstetrical Risk Factors: GBS Positive - Plan Plan: Antibiotic Prophylaxis, Admit - Anticipate Vaginal Delivery Plan Comment: Admit to L&D, initiate IV and GBS abx prophylaxis. Patient declines need for pain med at this time, aware of options if desired. Encourage movement, upright positions. Patient will try tub. Anticipate SVB. - Date/Time of Admission Date of Admission: 08/31/19 Time of Admission: 19:46
[2019-08-31 20:20] LABS: ABS Eosinophils 0.2 10^3/ul (0-0.6); ABS Lymphocytes 2.3 10^3/ul (1.0-4.8); ABS Monocytes 0.9 10^3/ul (0-0.8); Eosinophil % 1.2 %; Hematocrit 39 % (35-47); Hemoglobin 13.2 g/dL (12.0-16.0); Lymphocyte % 17.3 %; Mean Corpuscular HGB Conc 34 g/dL (31-36); Mean Corpuscular Hemoglobin 29 pg (27-31); Mean Corpuscular Volume 85 fL (80-97); Mean Platelet Volume 7.6 fL (7.4-10.4); Platelet Count 261 10^3/uL (150-450); Red Blood Count 4.53 10^6 /uL (3.70-4.87); Red Cell Distribution Width 14 % (10-15); White Blood Count 13.4 10^3/uL (3.5-10.8)
[2019-08-31] MEDS: Vancomycin(*) 1,500 MG in NS 0.9% 250 ML* 250 ML IVPB SCH (20:29)
[2019-08-31] MEDS ORDERED: Sertraline* 100 MG TAB PO SCH (21:00)
[2019-08-31] MEDS ORDERED: Ranitidine TAB (NF) 150 MG TAB PO SCH (21:00)
[2019-08-31 21:06] LABS: Urine Benzodiazepine Screen None Detected (None Detect); Urine Opiates Screen None Detected (None Detect)
--- NOTE | 2019-08-31 21:57 | PN ---
Progress Note - Progress Note Date of Service: 08/31/19 Note: S: Patient reports ctx stronger, would like to try nitrous oxide for pain management. O: VE deferred FHT 140 doppler T 99.4 A: IUP @ 38+5 weeks gestation in active labor Coping well Intact membranes No evidence acidemia P: Initiate self-administered nitrous oxide.
--- NOTE | 2019-09-01 02:42 | PN ---
Progress Note - Progress Note Date of Service: 09/01/19 Note: S: Patient has been in bed and on yoga ball with good effect. Coping well with contractions, using nitrous occasionally. Feels that they are getting stronger, wants to consider medication. O: VE 7-8cm/90%/vtx -1 FHT 140 Cat 1 VSS Rupture of membranes during exam, clear fluid initially, light meconium staining A: IUP in active labor Suspect posterior position No evidence acidemia P: Initiated position changes in bed with peanut ball on sides, hands and knees. Patient opting to try tub next for pain relief.
--- NOTE | 2019-09-01 04:39 | PN ---
Progress Note - Progress Note Date of Service: 09/01/19 Note: S: Patient requests discussion of pain med options. Did well in tub but tired and starting to feel that she isn't coping with labor. O: VE: 7-8/90/vtx 0 FHT 160 doppler VSS, afebrile Ctx q 3-4 min A: IUP in active labor Suspect OA positioning Meconium No evidence acidemia P: PARQ discussion nubain/phenergan vs epidural, reviewed procedures, questions answered. Patient opting for epidural. Anesthesia on unit with another patient and will be made aware.
[2019-09-01] MEDS: Famotidine TAB* 20 MG PO SCH ×2 (04:47→11:52)
[2019-09-01] MEDS ORDERED: OBEPIDURAL* 0 ML EPIDURAL ONE ×2 (04:52→06:04)
[2019-09-01] MEDS ORDERED: OBEPIDURAL* 250 ML EPIDURAL ONE (06:10)
[2019-09-01] MEDS ORDERED: Lactated Ringers 1000 ML Bag* 1,000 ML IV ONE (06:27)
[2019-09-01] MEDS ORDERED: Sodium Citrate/Citric Acid* 15 ML UDC PO PRN (06:27)
[2019-09-01] MEDS ORDERED: EPHEDrine (Pressors)* 50 MG/ML VIAL IV PUSH PRN ×2 (06:27)
[2019-09-01] MEDS ORDERED: Phenylephrine 40 MCG/ML SYRINGE IV PUSH PRN ×2 (06:27)
[2019-09-01] MEDS ORDERED: Lactated Ringers 1000 ML Bag* 500 ML IV PRN ×2 (06:27)
[2019-09-01] MEDS ORDERED: Famotidine TAB* 20 MG PO PRN (06:27)
[2019-09-01] MEDS ORDERED: OBEPIDURAL* 250 ML EPIDURAL SCH (07:00)
[2019-09-01] MEDS ORDERED: Lactated Ringers 1000 ML Bag* 1,000 ML IV SCH ×2 (07:00→21:00)
[2019-09-01] MEDS ORDERED: Oxytocin in LR* 20 UNITS/1,000 ML BAG IVPB SCH ×2 (07:00→21:00)
--- NOTE | 2019-09-01 07:16 | PN ---
Progress Note - Progress Note Date of Service: 09/01/19 Note: S: Comfortable with epidural, has good leg movement. O: VE deferred FHT 140, mod yoel, +accels, small variable decels VSS UCs q 5-8 min A: IUP in active labor GBS positive Meconium P: PARQ discussion low-dose pitocin for augmentation; patients in agreement. Encourage rest and position changes.
[2019-09-01] MEDS ORDERED: Vancomycin(*) 1,000 MG VIAL ONE (08:41)
[2019-09-01] MEDS: Vancomycin(*) 1,500 MG in NS 0.9% 250 ML* 250 ML IVPB SCH (08:55)
--- NOTE | 2019-09-01 09:48 | PN ---
Progress Note - Progress Note Date of Service: 09/01/19 SOAP: Subjective: Pt uncomfortable but coping. Encouraged epidural bolus button as needed Objective: Pt experienced run of tachysystole with FHR deceleration into the 90s. Pitocin discontinued, pt repositioned, FHR w/ good return to baseline. At this time FHR: baseline 140/ moderate variability/ no accels/ occasional variable decel UCs: irregular, were every 4-5 minutes, then run of tachysystole with every minute ctx x 5 minutes, now every 4-6 minutes again Cervix: 9 cm/ 100%/ vtx/ 0 station Assessment: Pt making good progress. Category II tracing. Plan: Since pt making good progress, and FHR tracing resolved to baseline and has moderate variability, anticipate progression to . Close monitoring of ctx pattern and FHR, will restart Pitocin at low dose if needed. FSE if unable to trace FHR.
--- NOTE | 2019-09-01 11:30 | PN ---
Progress Note - Progress Note Date of Service: 09/01/19 SOAP: Subjective: Pt uncomfortable, coping. States feeling "ready to be done." Objective: Cervix: anterior lip/ 100%/ 0 station, vtx. FHR: Baseline 150/ moderate variability/ no accels/ variable decels UCs: 2-4 minutes, some coupling Temp: 99.1, BP- 102/67 Assessment: Pt making progress, lying on right side seems to be best for FHR. No evidence of chorioamnionitis. Plan: Retry position changes with close monitoring of FHR. No need for Pitocin augmentation at this time, if no progress at next check can consider restarting. Anticipate progression to full dilation and .
[2019-09-01] MEDS ORDERED: D5LR 1000 ML BAG* 500 ML IV ONE (12:00)
--- NOTE | 2019-09-01 13:42 | PN ---
Progress Note - Progress Note Date of Service: 09/01/19 SOAP: Subjective: Pt dozing at times, but while awake reports increased pressure. Objective: FHR: Category II, moderate variability, no accels, several late and variable decels noted. UCs: 2-4 minutes Pitocin still off Cervix: Anterior lip/ 100%/ +1/ vtx Assessment: Category II FHR tracing but progressing towards delivery. Plan: Labor down a little longer then trial of pushing
[2019-09-01] MEDS ORDERED: NS 0.9% IVPB ONE (14:30)
[2019-09-01] MEDS ORDERED: GENTAMICIN ADULT IVPB ONE (14:30)
[2019-09-01] MEDS ORDERED: Acetaminophen TAB* 325 MG ONE (15:05)
--- NOTE | 2019-09-01 17:26 | PN ---
Progress Note - Progress Note Date of Service: 09/01/19 SOAP: Pt currently fairly uncomfortable but coping. She pushed for about 1.5 hours and per consult with Dr. Butler is currently laboring down. While pushing pt developed fever of 101.2 as well as tachycardia. In consult with Dr. Butler, administered Gentamicin IV, as well as Tylenol. O2 appled in between pushing efforts, IVF bolus given. Pt initially pushed with good effort and steady descent, then efforts stopped being as effective. At that time consulted with Dr. Butler to evaluate for possibility of vacuum assist. Per Dr. Butler, head too high. He recommended stopping pushing efforts and laboring down until pt can't help but push. Since stopping pushing FHR has improved to baseline 150, moderate variability, no accels, no decels. Plan to reevaluate in an hour or two or with urge to push.
[2019-09-01] MEDS: Sertraline* 100 MG TAB PO SCH (17:37)
[2019-09-01] MEDS ORDERED: Dibucaine 1% 28.35 GM TUBE PR PRN (20:43)
[2019-09-01] MEDS ORDERED: Glycerin ADULT SUPP PR PRN (20:43)
[2019-09-01] MEDS ORDERED: Witch Hazel PAD* JAR TOPICAL PRN (20:43)
[2019-09-01] MEDS ORDERED: Lidocaine 1% INJ* 10 MG/ML 30 ML SDV ONE (21:26)
[2019-09-01] MEDS ORDERED: Ammonia Inhalant* 1 EA AMP ONE (22:15)
[2019-09-01] MEDS: Ibuprofen TAB* 600 MG PO PRN (22:17)
[2019-09-02] MEDS: Acetaminophen TAB* 325 MG PO PRN ×4 (03:42→17:58)
--- NOTE | 2019-09-02 07:47 | PROCNOTE ---
[facility] OB: Delivery Note - Delivery A Date of : 09/01/19 Time of : 19:53 [place] Sex: Female Weight at : 3.19 kg Score 1 Minute: 8 Score 5 Minutes: 9 Gestational Age in Weeks and Days at Delivery: 38 Weeks and 5 Days Delivery Method: Spontaneous Vaginal Labor: Spontaneous Did Patient attempt ?: N/A, No Previous Amniotic Fluid: Meconium Estimated Blood Loss: 400 Anesthesia/Analgesia: CEI for Labor Delivered By: Elizabeth Quinn - Nursery Level of Nursery: Regular/Bedside - Perineum Perineal Injury: Midline Episiotomy, 2nd Degree Perineal Repair: By Delivering Practioner - Events Delivery Events of Note: Pitocin During Labor, Chorio in Labor, Supplemental O2 to Mother, Maternal Temperature during Labor, Full Course of Antibiotics, Internal Scalp EKG - Additional Delivery Notes Additional Delivery Notes: Pt arrived to L&D in active labor, but made slow progress. Eventually she requested and received a labor epidural with good pain relief. After progress stalled, Pitocin augmentation initiated. Pt eventually progressed to full dilation, with periods of Category II tracing. When she began to push, pt became febrile and FHR began to exhibit tachycardia. Dx of chorioamnionitis made and MD consult initiated. Gentamicin added to Vancomycin already being given for GBS prophylaxis. Tylenol and fluids given as well as O2. Pt initially continued to make good progress with pushing, so continued despite tachycardia and significant decelerations with pushing. However, when progress slowed consulted with Dr. Butler for possible vacuum assist. station too high for vacuum and Dr. Butler recommended laboring down. Pt then labored down for some time. Called to pt's room for FHR deceleration. When unable to obtain FHR tracing through EFM, FSE was placed. However, no heart tones auscultated with FSE. Dr. Butler, r programmer called urgently. Pt was pushing spontaneously and was encouraged to push. FHR was auscultated via EFM, was in deceleration but present. Pt coached to push and made good descent. Small midline episiotomy cut with and infant delivered to maternal abdomen with good tone, wet cry. Cord milked, clamped, and cut and to warmer for evaluation where she was suctioned and began spontaneous vigorous cry. Placenta delivered, spontaneously with gentle cord traction, ovidio side. Pitocin started at 250 cc/ hr. Examination of the perineum revealed second degree extension of midline episiotomy, repaired using 3-0 Vicryl suture resulting in good hemostasis and tissue approximation. During repair membranes noted protruding from the cervix. Membranes gently teased out, revealing handkerchief-sized piece of membranes. Bleeding remained WNL, fundus firm. Placenta appeared intact but very friable. Placental cultures obtained and placenta sent to pathology. After evaluation on warmer, infant returned to pt and placed skin to skin and initiated. Pt being closely monitored for signs of infection or excess bleeding.
[2019-09-02 07:56] LABS: ABS Eosinophils 0.1 10^3/ul (0-0.6); ABS Lymphocytes 2.5 10^3/ul (1.0-4.8); ABS Monocytes 1.4 10^3/ul (0-0.8); ABS Neutrophils 16.5 10^3/ul (1.5-7.7); Eosinophil % 0.7 %; Hematocrit 29 % (35-47); Hemoglobin 9.7 g/dL (12.0-16.0); Lymphocyte % 12.2 %; Mean Corpuscular HGB Conc 34 g/dL (31-36); Mean Corpuscular Hemoglobin 29 pg (27-31); Mean Corpuscular Volume 86 fL (80-97); Mean Platelet Volume 7.4 fL (7.4-10.4); Platelet Count 185 10^3/uL (150-450); Red Blood Count 3.31 10^6 /uL (3.70-4.87); Red Cell Distribution Width 14 % (10-15); White Blood Count 20.6 10^3/uL (3.5-10.8)
[2019-09-02] MEDS: Docusate CAP* 100 MG PO SCH ×4 (08:38→21:31)
[2019-09-02] MEDS: Ibuprofen TAB* 600 MG PO PRN ×3 (08:39→21:30)
[2019-09-02] MEDS: Ferrous Gluconate TAB* 324 MG TAB PO SCH ×2 (08:39→21:30)
[2019-09-02] MEDS: Famotidine TAB* 20 MG PO SCH (08:39)
[2019-09-02] MEDS: Sertraline* 100 MG TAB PO SCH (08:40)
[2019-09-03] MEDS: Acetaminophen TAB* 325 MG PO PRN ×4 (03:45→18:37)
[2019-09-03] MEDS: Ibuprofen TAB* 600 MG PO PRN ×3 (03:45→18:37)
[2019-09-03] MEDS: Ferrous Gluconate TAB* 324 MG TAB PO SCH (07:41)
[2019-09-03] MEDS: Sertraline* 100 MG TAB PO SCH (07:42)
[2019-09-03] MEDS: Docusate CAP* 100 MG PO SCH ×2 (07:42→14:01)
[2019-09-03] MEDS: Famotidine TAB* 20 MG PO SCH (07:42)
[2019-09-03 20:14] VITALS: BP 118/65
== END 2019-09-03 23:13 | disposition home or self-care (01) | DRG 560 ==
LOC: MCHOBOUT 18:28 → MCHOB 19:46
PROVIDERS: ADMIT Midwife; ATTEND Midwife
PROC: 10E0XZZ Delivery of Products of Conception, External Approach (ICD-10-PCS; principal; 2019-09-01)
PROC: 0W8NXZZ Division of Female Perineum, External Approach (ICD-10-PCS; 2019-09-01)
PROC: 0KQM0ZZ Repair Perineum Muscle, Open Approach (ICD-10-PCS; 2019-09-01)
DX: O75.2 Pyrexia during labor, not elsewhere classified (principal); O41.1230 Chorioamnionitis, third trimester, not applicable or unspecified; Z37.0 Single live birth; O99.824 Streptococcus B carrier state complicating childbirth; O70.1 Second degree perineal laceration during delivery; O77.0 Labor and delivery complicated by meconium in amniotic fluid; O99.344 Other mental disorders complicating childbirth; F41.8 Other specified anxiety disorders; O76 Abnormality in fetal heart rate and rhythm complicating labor and delivery; O90.81 Anemia of the puerperium; D64.9 Anemia, unspecified; Z3A.38 38 weeks gestation of pregnancy
CPT/HCPCS: 36415; 80307; 85025; 86850; 86900; 86901; 87070; A9270-GY; J1580; J3370